=== PATIENT | male | born 1955 | race Caucasian/White ===

== ENCOUNTER 2019-07-18 09:23 | Outpatient (CLI) | payer MEDICARE, OTHER, SELFPAY ==
--- NOTE | ~2019-07-18 | XR_ITS ---
EXAMINATION: XR chest 2V EXAM DATE: 07/18/2019 09:49 INDICATION: Personal history of pneumonia. TECHNIQUE: Frontal and lateral projections of the chest obtained and reviewed. Comparison is made to prior examination from 05/04/2019. FINDINGS: Left lower lobe granuloma, projecting over the spine on the lateral projection. This is un changed compared to 2017. The lungs are otherwise clear. There are no pleural effusions. The cardio mediastinal silhouette is within normal limits. There is no pneumothorax suspected. Mild to moderat e thoracic spondylosis. IMPRESSION: No acute cardiopulmonary findings. Reviewed, dictated and finalized at location B.
== END 2019-07-18 09:24 | disposition home or self-care (01) ==
PROVIDERS: PCP Family Medicine; Visit Provider Family Medicine
DX: Z87.01 Personal history of pneumonia (recurrent) (principal)
CPT/HCPCS: 71046

== ENCOUNTER 2019-08-05 13:22 | Outpatient (CLI) | payer MEDICARE, OTHER, SELFPAY ==
--- NOTE | 2019-08-05 13:39 | ECHO_ITS ---
Patient Info Name: Juan Bhatti Age: 63 years : 1955 Gender: Male Ht: 67 in Wt: 268 lbs BSA: 2.46 m2 HR: 65 bpm Heart Rhythm: Sinus Rhythm Technical Quality: Fair Exam Date: 08/05/2019 1:51 PM Exam Location: [facility] Patient Status: Outpatient Admit Date: 08/05/2019 Staff Ordering Physician: Tomi Holland DO Nurse Discharge: Michoacano Cowan RDCS Attending Provider: Tomi Holland DO Referring Physician: Skyler ZHONG; Exam Type: CA echo doppler color flow Study Info Indications I50.32 - Chronic diastolic (congestive) heart failure Complete two-dimensional, color flow and Doppler transthoracic echocardiogram is performed. History/Risk Factors Diastolic heart failure. Summary 1. Left ventricular chamber dimension is normal. 2. Left ventricular systolic function is normal, estimated at 55-60%. 3. There is moderately increased left ventricular wall thickness. 4. The left ventricular diastolic function is grade I diastolic dysfunction. 5. E/e' 8 is minimally elevated. 6. Left atrial chamber dimension is mildly enlarged. 7. No pulmonary hypertension, estimated pulmonary arterial systolic pressure is 28 mmHg. Left Ventricle E/e' 8 is minimally elevated. Left ventricular chamber dimension is normal. Left ventricular systolic function is normal, estimated at 55-60%. There is moderately increased left ventricular wall thickness. The left ventricular diastolic function is grade I diastolic dysfunction. Right Ventricle Right ventricular chamber dimension is normal. Right ventricular systolic function is normal. Left Atria Left atrial chamber dimension is mildly enlarged. Right Atria Right atrial chamber dimension is normal. Aortic Valve The aortic valve is trileaflet. There is no aortic valve stenosis. There is no aortic valve regurgitation. Pulmonic Valve There is no pulmonic regurgitation. Mitral Valve There is no mitral valve stenosis. There is no mitral valve regurgitation. Tricuspid Valve There is no tricuspid valve regurgitation. No pulmonary hypertension, estimated pulmonary arterial systolic pressure is 28 mmHg. Pericardium/Pleural There is no pericardial effusion. Inferior Vena Cava Normal inferior vena cava with >50% collapse upon inspiration consistent with normal right atrial pressure, 5 mmHg. Aorta The aortic root size at the sinus of Valsalva is normal. Left Ventricular Outflow Tract Name Value Normal LVOT 2D LVOT Diameter 2.0 cm LVOT Doppler LVOT Peak Gradient 3 mmHg LVOT Mean Gradient 1 mmHg LVOT VTI 15 cm LVOT VTI/AV VTI Ratio 0.7 LVOT Stroke Volume 49 ml LVOT CO 2.9 l/min LVOT CI 1.2 l/min/m2 Mitral Valve Name Value Normal MV Doppler
== END 2019-08-05 13:23 | disposition home or self-care (01) ==
PROVIDERS: PCP Family Medicine; Visit Provider Internal Medicine Cardiovascular Disease
DX: I50.32 Chronic diastolic (congestive) heart failure (principal)
CPT/HCPCS: 93306

== ENCOUNTER 2019-08-08 09:47 | Outpatient (CLI) | payer MEDICARE, OTHER, SELFPAY ==
--- NOTE | ~2019-08-08 | CT_ITS ---
EXAMINATION: CT abdomen pelvis wo con DATE: 08/08/2019 10:17 INDICATION: Unspecified abdominal pain TECHNIQUE: Computed tomography (CT) of the abdomen and pelvis was performed without intravenous contr ast. Automated exposure control and iterative reconstruction technique were employed. Exam dose: 159 2.48 mGy-cm total exam DLP. COMPARISON: 10/18/2010 CT abdomen pelvis FINDINGS: There is a calcified left lower lobe granuloma. Calcified left lower lobe pulmonary granuloma, calcified left hilar nodes and numerous calcified sple malu granulomas, consistent with old granulomatous disease. There is discoid atelectasis or scarring i n the right lower lobe. No infiltrate or consolidation in the lower lung zones. Normal heart size. Coronary artery calcifications. No pericardial or pleural effusion. There is an IVC filter beneath the level of the renal veins. The liver, spleen, pancreas, adrenal glands and kidneys are unremarkable. No bile duct or pancreatic duct dilatation. No urinary tract calculus or hydroureteronephrosis. Normal appendix. No bowel obstruction or intraperitoneal free air. There is a small fat containing left inguinal hernia. Degenerative changes of the thoracic and lumbar spine; there is severe degenerative disc disease and retrolisthesis at L5-S1. IMPRESSION: Old pulmonary granulomatous disease Coronary atherosclerosis IVC filter Small fat-containing left inguinal hernia Reviewed, dictated and finalized at Location A. Reviewed, dictated and finalized at location B.
== END 2019-08-08 09:48 | disposition home or self-care (01) ==
PROVIDERS: PCP Family Medicine; Visit Provider Nurse Practitioner
DX: K40.90 Unilateral inguinal hernia, without obstruction or gangrene, not specified as recurrent (principal); I25.10 Atherosclerotic heart disease of native coronary artery without angina pectoris
CPT/HCPCS: 74176

== ENCOUNTER 2019-11-30 08:28 | Outpatient (CLI) | payer MEDICARE, OTHER, SELFPAY ==
--- NOTE | ~2019-11-30 | XR_ITS ---
EXAMINATION:XR_CERV2-3V_CR DATE: 11/30/2019 08:45 INDICATION: Cervicalgia TECHNIQUE: AP, lateral, lateral swimmers and odontoid views of the cervical spine are provided. COMPARISON: None FINDINGS: There are 2 mm of anterolisthesis of C4 on C5. Vertebral body alignment is otherwise normal . The odontoid is intact. No fracture is identified. The vertebral body heights are maintained. There is mild loss of intervertebral disc space height at C5-6 and C6-7. Prevertebral soft tissues are nor mal. Degenerative osteophytes project from the anterior endplates of multiple vertebral bodies. There is severe multilevel facet and uncovertebral joint osteoarthritis. IMPRESSION: 1. Moderate cervical spondylosis without acute findings. Reviewed, dictated and finalized at location B.
== END 2019-11-30 08:29 | disposition home or self-care (01) ==
PROVIDERS: PCP Family Medicine; Visit Provider Family Medicine
DX: M47.892 Other spondylosis, cervical region (principal)
CPT/HCPCS: 72040

== ENCOUNTER 2020-11-02 04:06 | Inpatient (IN) | payer MEDICARE, OTHER, SELFPAY ==
[2020-11-02] VITALS (25 sets, daily range): BP systolic 118–174; BP diastolic 76–93; PULSE 74–96; RESP 12–20; TEMP 35.6–36.8; O2SAT 91–97; BMI 39.0
--- NOTE | 2020-11-02 | ECHO_ITS ---
Patient Info Name: Juan Bhatti Age: 65 years : 1955 Gender: Male Ht: 67 in Wt: 249 lbs BSA: 2.36 m2 HR: 70 bpm BP: 120 / 77 mmHg Technical Quality: Poor Exam Date: 11/02/2020 1:22 PM Exam Location: [facility] Patient Status: Outpatient Admit Date: 11/02/2020 Staff Ordering Physician: Tomi Holland DO Commercial Loan Officer: MIGUEL Attending Provider: Wolf Gloria MD Referring Physician: Skyler ZHONG; Exam Type: CA echo dop color flow w con Study Info Indications I21.4 - Non-ST elevation (NSTEMI) myocardial infarction Complete two-dimensional, color flow and Doppler transthoracic echocardiogram is performed with contrast to opacify the left ventricle and to improve the deliniation of the left ventricle endocardial borders. Contrast/Agitated Saline Contrast/Ag. Saline: Definity Amount: 2.00 ml Administered By: Tameka Riley RN Existing IV Access: Yes IV Access Condition: patent with no signs of infiltration Reason for Poor Study: poor echocardiographic windows Summary 1. Left ventricular chamber dimension is normal. 2. Definity contrast administered improved wall motion interpretation. 3. Left ventricular systolic function is normal, estimated at 60-65%. 4. The left ventricular diastolic function is grade I diastolic dysfunction. 5. E/e' 7 is not elevated. 6. There is mild aortic valve sclerosis. Left Ventricle Definity contrast administered improved wall motion interpretation. E/e' 7 is not elevated. Left ventricular chamber dimension is normal. Left ventricular systolic function is normal, estimated at 60-65%. The left ventricular diastolic function is grade I diastolic dysfunction. Right Ventricle Right ventricular systolic function is normal with normal TAPSE 2.3 cm. Right ventricular chamber dimension is normal. Left Atria Left atrial chamber dimension is normal. Right Atria Right atrial chamber dimension is normal. Aortic Valve The aortic valve is trileaflet. There is mild aortic valve sclerosis. There is no aortic valve stenosis. There is no aortic valve regurgitation. Pulmonic Valve There is no pulmonic regurgitation. Mitral Valve There is no mitral valve stenosis. There is no mitral valve regurgitation. Tricuspid Valve There is no tricuspid valve regurgitation. Pericardium/Pleural There is no pericardial effusion. Inferior Vena Cava Normal inferior vena cava with >50% collapse upon inspiration consistent with normal right atrial pressure, 5 mmHg. Aorta The aortic root size at the sinus of Valsalva is normal. Left Ventricular Outflow Tract Name Value Normal LVOT 2D LVOT Diameter 2.27 cm LVOT Doppler LVOT Peak Velocity 87.27 cm/s LVOT Peak Gradient 3 mmHg LVOT Mean Gradient 2 mmHg LVOT VTI 17.10 cm LVOT VTI/AV VTI Ratio 0.72 LVOT Stroke Volume 69.30 ml LVOT CO 6.39 l/min
--- NOTE | ~2020-11-02 | XR_ITS ---
EXAMINATION: XR chest 2V DATE: 11/02/2020 04:36 INDICATION: Left-sided chest pain TECHNIQUE: PA and lateral views of the chest were obtained. COMPARISON: Chest radiograph dated 07/18/2019 FINDINGS: Again seen is a calcified nodule at the left lung base consistent with old granulomatous disease. No other airspace opacities, pulmonary edema, pleural effusion or pneumothorax. The cardiomediastinal si lhouette is normal. IMPRESSION: 1. No acute cardiopulmonary disease. Reviewed, dictated and finalized at location A.
--- NOTE | 2020-11-02 04:14 | ED.CHESTPAIN ---
HPI - Chest Pain General Chief Complaint: Chest Pain Stated Complaint: chest pain History of Present Illness HPI narrative: 65 yo male w/ h/o htn, dm, PE/dvt presents to the ED for chest pain. Crushing left sided chest pain that started at 0200 today. Radiated to left shoulder. No associated symptoms. He has never had this pain before. Resolved with nitroglycerin given by EMS. He has a h/o PE 20 years ago. He is on Coumadin. Uncertain of last INR. Related Data Home Medications Medication Instructions Recorded Confirmed ergocalciferol (vitamin D2) unit 03/31/19 09/10/20 bisacodyl [Dulcolax (bisacodyl)] PO 07/12/19 09/10/20 omega 3,6,9 combination no.7 PO 07/12/19 09/10/20 [[place] DHA] warfarin 5 mg tablet See Rx Instructions .ROUTE 06/05/20 09/10/20 .COMPLEX tablet blood-glucose meter,continuous 09/11/20 Allergies Allergy/AdvReac Type Severity Reaction Status Date / Time celecoxib Allergy Unknown Rash Verified 11/02/20 04:23 dapagliflozin Allergy Unknown Unknown Verified 11/02/20 04:23 fenofibrate Allergy Unknown Joint Pain Verified 11/02/20 04:23 Qtgifra-Owb-Ehm Reductase Allergy Unknown Joint Pain Verified 11/02/20 04:23 Inhibitor codeine AdvReac Confusion Verified 11/02/20 04:23 Review of Systems Review of Systems: All systems reviewed & are unremarkable except as noted in HPI and below Constitutional: Constitutional: Denies chills and Denies fever(s) ENT: Reports system reviewed and no additional complaints, except as documented Cardiovascular: Cardiovascular: Reports as per HPI Respiratory: Respiratory: Denies dyspnea Gastrointestinal: Gastrointestinal: Denies nausea Genitourinary: Genitourinary: Reports no additional male genitourinary complaints Neurologic: Reports system reviewed and no additional complaints, except as documented PENDING SALE TO [facility] Past Medical History Medical History Allergies Arthritis Benign reactive hypertension Blood clot associated with vein wall inflammation Cataracts, bilateral Chronic diastolic (congestive) heart failure DDD (degenerative disc disease) Diabetes Diabetes mellitus with neuropathy DVT (deep venous thrombosis) [place] filter in place Hypercholesterolemia Hypertension CARY (obstructive sleep apnea) Pneumonia Pulmonary embolism Ruptured intervertebral disc Seasonal allergies Ulcer Umbilical hernia Surgical History Surgical History H/O Spinal surgery History of inguinal hernia repair History of knee surgery Left History of thumb surgery Left Family History Family History Father Hypertension Family history of elevated blood lipids Mother Hypertension Family history of elevated blood lipids Family history of diabetes mellitus in first degree relative Other Cancer Diabetes mellitus Thyroid disease Social History Social History Smoking status: Former smoker Tobacco type: cigarettes Second hand tobacco smoke exposure: No Smoking end date: 05/08/93 Alcohol intake: never Substance use: never Substance use type: does not use Gender identity (if verbalized by the patient): Male Exam Const: General: no acute distress and alert Nutritional Appearance: obese Orientation/consciousness: patient oriented x3 HENMT: Head: normal to inspection Neck: Neck: normal visual inspection Chest: Chest palpation & inspection: normal inspection of the chest and no tenderness Resp: Effort & Inspection: normal respiratory effort Auscultation: clear to auscultation bilaterally Course Vital Signs Vital signs: Vital Signs Temperature 36.4 C 11/02/20 04:04 Pulse Rate 96 11/02/20 04:04 Respiratory Rate 16 11/02/20 04:04 Blood Pressure 174/90 H 11/02/20 04:04 Pulse Oximetry 96 11/02/20 0
--- NOTE | 2020-11-02 04:17 | ECG_ITS ---
Measurements Intervals [place] Rate: 80 P: 45 MN: 223 QRS: -80 QRSD: 113 T: 39 QT: 388 QTc: 450 Interpretive Statements SINUS RHYTHM WITH FIRST DEGREE AV BLOCK INCOMPLETE RIGHT BUNDLE BRANCH BLOCK POOR R WAVE PROGRESSION, ANTERIOR LEADS INFERIOR INFARCT, AGE INDETERMINATE ABNORMAL ECG Electronically Signed On 11-02-2020 7:58:02 CDT by Tomi Holland D.O.
[2020-11-02 04:35] LABS: Basophils Absolute Auto 0.1 K/mm3 (0.0-0.1); Basophils Percent Auto 0.8 % (0.2-1.2); Eosinophils Absolute Auto 0.1 K/mm3 (0-0.3); Hematocrit 52.5 % (42.0-52.0); Hemoglobin 17.9 g/dL (14.0-18.0); Immature Granulocyte Absolute 0.02 K/mm3 (0.00-0.031); Immature Granulocyte Percent A 0.3 % (0-0.5); Lymphocytes Absolute Auto 2.79 K/mm3 (0.9-3.2); Lymphocytes Percent Auto 42.1 % (18.3-44.2); Mean Corpuscular HGB Conc 34.1 g/dl (32-36); Mean Corpuscular Hemoglobin 29.6 pg (26-34); Mean Corpuscular Volume 86.9 fl (80-100); Mean Platelet Volume 9.9 fl (7.4-10.4); Monocytes Absolute Auto 0.7 K/mm3 (0.1-0.6); Neutrophils Percent Auto 44.8 % (45.5-73.1); Platelet Count Result 161 k/mm3 (150-375); Red Blood Count 6.04 M/mm3 (4.6-6.20); Red Cell Distribution Width 13.4 % (11.5-14.5); White Blood Count 6.6 K/mm3 (4.5-10.0)
[2020-11-02 04:50] LABS: INR 2.7
[2020-11-02 04:51] LABS: Partial Thromboplastin Time 39.6 SECONDS (22.3-36.8)
[2020-11-02 04:52] LABS: Anion Gap 10 mmol/L (8-16); Blood Urea Nitrogen 15 mg/dL (9-20); Calcium 9.3 mg/dL (8.4-10.2); Carbon Dioxide 25 mmol/L (22-30); Chloride 101 mmol/L (98-107); Estimated Glomerular Filt Rate > 60; Glucose 117 mg/dL (75-110); Potassium 3.3 mmol/L (3.4-5.0); Sodium 136 mmol/L (137-145)
[2020-11-02 04:55] LABS: NT Pro B Type Natriuretic Pept 50 pg/mL (5-100)
[2020-11-02 04:58] LABS: Troponin I 0.019 ng/mL (0.000-0.034)
[2020-11-02] MEDS: NITROGLYCERIN OINTMENT 1 INCH DOSE TRANSDERM ×4 (06:00→23:22)
--- NOTE | 2020-11-02 07:18 | ADMGEN ---
This patient, Juan Bhatti, was admitted to IMU Room [id number]. Patient/family oriented to hospital policies and general routines including ID bracelet, bed and alarms, visiting hours, pain management, procedures, bathroom and other care routines, personal items, smoking policy, room service/diet, and visiting hours. Information on how to activate the Rapid Response Team has been discussed. Patient/Family are encouraged to report perceived risks to care and to ask questions if they do not understand what they are told or what they should do.
[2020-11-02 08:00] LABS: Glucose Point of Care 130 mg/dl (65-105)
--- NOTE | 2020-11-02 09:12 | PM.CNCAR ---
Assessment and Plan Assessment and plan (1) Chest pain: Qualifiers: Chest pain type: unspecified Qualified Code(s): R07.9 - Chest pain, unspecified Code(s): R07.9 - Chest pain, unspecified Status: Acute Assessment and Plan: Resolved with NTP. (2) NSTEMI (non-ST elevated myocardial infarction): Code(s): I21.4 - Non-ST elevation (NSTEMI) myocardial infarction Status: Acute Assessment and Plan: Trend troponins. Check echo. Continue aspirin, Metoprolol. Discussed left heart cath and he is agreeable for procedure. Will consult [facility] for procedure. His INR is 2.7 on Warfarin, will hold warfarin and give Vit K to reverse INR level. Since he is not having active chest pains and hemodynamically stable, will probably plan for [facility] tomorrow with INR <1.8 hopefully. (3) Hypertension: Code(s): I10 - Essential (primary) hypertension Status: Acute Assessment and Plan: Stable. (4) Hypercholesterolemia: Code(s): E78.00 - Pure hypercholesterolemia, unspecified Status: Acute Assessment and Plan: Intolerant of statins due myalgia. (5) Type 2 diabetes mellitus with stage 3 chronic kidney disease: Code(s): E11.22 - Type 2 diabetes mellitus with diabetic chronic kidney disease; N18.3 - Chronic kidney disease, stage 3 (moderate) Status: Acute Assessment and Plan: Managed by hospitalist. (6) History of deep venous thrombosis or pulmonary embolus: Status: Acute Assessment and Plan: Remote history of it. Hold Warfarin. Has saritha filter. History of Present Illness History of Present Illness Consult date/time: 11/02/20 09:12 Reason for consult: CP. 63 yr old man who is my regular cardiology patient presents to ER with chest pain. He has a history of DVT/PE with [place] filter placed in 2007, hypertension, DM, CARY intolerant of CPAP, dyslipidemia (statins cause myalgia). is at bedside. He reports he was awake at 2 am this morning and had left sided chest pressure that radiates to his back that got worse. He called ambulance and was given aspirin and NTG SL but pain persisted. He got to ER and was started on NTP and pain subsided. Troponin is elevated at 1.01. INR 2.7 on Warfain. EKG shows sinus rhythm with inferior infarct, but no acute ST changes. Reports chronic left leg edema that is mild and controlled with compression stockings. He takes Lasix on weekends only as needed. He normally can walk 1/2 mile without any problems. Denies sob, orthopnea, PND, palpitations. Cardiovascular Procedures 08/05/19 Echo: EF 55-60%, mod LVH, grade I diastolic dysfunction (E/e' 8), mild LAE. Electrophysiology:: 05/04/19 EKG: Sinus rhythm with first degree AV block, BRWP, consider inferior infarct, age indeterminate. Stress Tests:: 07/18/19 CXR: Normal. Reason For Visit: Chest Pain Review of Systems Review of Systems: All systems reviewed & are unremarkable except as noted in HPI and below Constitutional: Constitutional: Reports as per HPI, Denies chills and Denies fever(s) Cardiovascular: Cardiovascular: Reports as per HPI, Reports chest pain and Denies lightheadedness Respiratory: Respiratory: Reports as per HPI and Denies dyspnea Gastrointestinal: Gastrointestinal: Reports as per HPI and Denies abdominal pain Genitourinary: Genitourinary: Reports as per HPI and Denies dysuria Musculoskeletal: Musculoskeletal: Reports as per HPI and Reports arthralgias Neurologic: Reports as per HPI, Denies dizziness and Denies syncope [facility] Past Medical History Medical History Allergies Arthritis Benign reactive hypertension Blood clot associated with vein wall inflammation Cataracts, bilateral Chronic diastolic (congestive) heart failure DDD (degenerative disc disease) Diabetes Diabetes mellitus with neuropathy DVT (deep venous thrombosis) [place] filter in place Hypercholest
--- NOTE | 2020-11-02 09:40 | PC.NURSE ---
[facility] flyer was given to patient.
--- NOTE | 2020-11-02 10:23 | PM.IMHP ---
H&P: HPI History of Present Illness Date/Time: 11/02/20 10:23 Chief Complaint: chest pain Narrative: patient with past medical history of DVT/PE with [place] filter placed in 2007, hypertension, DM, CARY intolerant of CPAP, dyslipidemia (statins cause myalgia). presented to the emergency department with chief complaint of chest pain, occurred overnight, moderate, intermittent, resolved at this time, pressure-like. associated with positive troponin, unremarkable EKG, cardiology saw the patient and recommended cardiac catheterization once his INR are sub therapeutic. patient is resting comfortably at this time, denies any active complaints. Review of Systems Review of Systems: All systems reviewed & are unremarkable except as noted in HPI and below Constitutional: Constitutional: Denies body ache(s) and Denies fatigue Eyes: Eyes: Denies blurry vision ENT: Denies dry mouth Cardiovascular: Cardiovascular: Denies chest pain with activity and Denies dyspnea Respiratory: Respiratory: Denies dyspnea Gastrointestinal: Gastrointestinal: Denies abdominal pain Genitourinary: Genitourinary: Denies genital pain Musculoskeletal: Musculoskeletal: Denies deformity Neurologic: Denies seizure-like activity Psychiatric: Psychiatric: Denies homicidal ideation Endocrine: Endocrine: Denies fatigue PMFSH Past Medical History Medical History Allergies Arthritis Benign reactive hypertension Blood clot associated with vein wall inflammation Cataracts, bilateral Chronic diastolic (congestive) heart failure DDD (degenerative disc disease) Diabetes Diabetes mellitus with neuropathy DVT (deep venous thrombosis) [place] filter in place Hypercholesterolemia Hypertension CARY (obstructive sleep apnea) Pneumonia Pulmonary embolism Ruptured intervertebral disc Seasonal allergies Ulcer Umbilical hernia Surgical History Surgical History H/O Spinal surgery History of inguinal hernia repair History of knee surgery Left History of thumb surgery Left Family History Family History Father Hypertension Family history of elevated blood lipids Mother Hypertension Family history of elevated blood lipids Family history of diabetes mellitus in first degree relative Other Cancer Diabetes mellitus Thyroid disease Social History Social History Smoking status: Never smoker Tobacco type: cigarettes Second hand tobacco smoke exposure: No Smoking end date: 05/08/93 Alcohol intake: never Substance use: never Substance use type: does not use Gender identity (if verbalized by the patient): Male Spiritual care concerns: No Meds Home Medications and Allergies Home Medications Medication Instructions Recorded Confirmed Type ergocalciferol (vitamin D2) 50,000 unit PO DAILY 03/31/19 11/02/20 History albuterol sulfate 1 inhalation INHALATION Q4-6H PRN 05/04/19 11/02/20 Rx #1 each diclofenac sodium 1 % topical gel 2 gm TOPICAL QID #100 gm 07/29/19 11/02/20 Rx azelastine 137 mcg (0.1 %) nasal 1 spray INTRANASAL Q12H #30 ml 05/14/20 11/02/20 Rx spray aerosol warfarin 5 mg tablet See Rx Instructions .ROUTE 06/05/20 11/02/20 History .COMPLEX tablet tramadol 50 mg tablet 50 mg PO Q6H PRN #360 tablet 06/23/20 11/02/20 Rx metoprolol tartrate 25 mg tablet 25 mg PO BID #180 tablet 07/17/20 11/02/20 Rx cyclobenzaprine 5 mg tablet 5 mg PO TID PRN #90 tablet 08/11/20 11/02/20 Rx insulin glargine 100 unit/mL (3 See Rx Instructions SUBCUT BID-TID 08/18/20 11/02/20 Rx mL) subcutaneous pen #45 ml losartan 100 1 tablet PO DAILY #90 tablet 08/25/20 11/02/20 Rx mg-hydrochlorothiazide 12.5 mg tablet montelukast 10 mg tablet 10 mg PO DAILY #90 tablet 08/25/20 11/02/20 Rx tamsulosi
[2020-11-02 10:57] LABS: Hemoglobin A1C 7.7 % (<5.7)
[2020-11-02] MEDS: hydroCHLOROthiazide 12.5 MG CAPSULE PO (11:23)
[2020-11-02] MEDS: MONTELUKAST SODIUM 10 MG TABLET PO (11:24)
[2020-11-02] MEDS: METOPROLOL TARTRATE 25 MG TABLET PO ×2 (11:24→20:31)
[2020-11-02] MEDS: PHYTONADIONE 5 MG TABLET PO ×2 (11:25→21:26)
[2020-11-02] MEDS: TAMSULOSIN HCL 0.4 MG CAPSULE PO (11:25)
[2020-11-02 11:55] LABS: Glucose Point of Care 106 mg/dl (65-105)
--- NOTE | 2020-11-02 12:08 | PM.CNCAR ---
Assessment and Plan Additional Plan this is a 65-year-old man with: No previous history of overt coronary artery disease enters the hospital with acute coronary syndrome. Symptoms were easily alleviated in the emergency room with sublingual nitroglycerin. Aspirin beta-blockers have been ordered by Dr. Holland which is appropriate. Anticoagulation is now being reversed with vitamin K and discontinuance of warfarin. We will arrange for coronary angiography to be done tomorrow to delineate his anatomy and guide therapeutic decisions assuming that his INR is sufficiently reversed. Juan Deluna MD [facility] History of Present Illness History of Present Illness Consult date/time: 11/02/20 12:08 Consult reason: chest pain Reason For Visit: Chest Pain Narrative: INTERVENTIONAL CARDIOLOGY CONSULT this is a 65-year-old man I am seeing at the request of Dr. Holland to consider arranging for coronary angiography. The patient is not known to have coronary artery disease prior to this an entered the hospital after being seen in the emergency room in the middle of the night with some chest pain that awakened him from sleep last night. Apparently at about 2:00 a.m. in the morning he was awakened from sleep with chest pain he describes a left precordial pain that radiated into the left shoulder and a bit down the left arm. He thought maybe he had slept in a funny position and he went to go to his recliner and rest for a while. When the symptoms did not resolve he notified his called an ambulance and was brought into the emergency room for evaluation. His symptom was not associated with any sense of shortness of breath nausea or vomiting. The air was no other great distress involved. In the emergency room his ECG was found to be benign. He was given aspirin and some nitroglycerin sublingually which alleviated his symptoms. He was admitted to the hospital for further evaluation and management. He is an established patient of Dr. Holland primarily for hypertension management. He was referred to him by his PCP for assistance with control of blood pressure. He does not report any history of other cardiac problems. 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 he is comfortable at this time visiting with his offers no other complaints. With physical activity such as working about his house he does not have any exertional symptoms. He does not exercise regularly in terms of activity associated chest pain. He denies any history of orthopnea PND or accumulating edema he has never had a syncopal episode. Troponin levels have risen up to just over 2 on the most recent sample. Patient's INR with his Coumadin was a 2.7 this morning. The Coumadin has of course been stopped and some vitamin K has been ordered by Dr. Holland. Review of Systems Constitutional: Constitutional: Reports no additional constitutional complaints Eyes: Eyes: Reports no additional eye complaints ENT: Reports system reviewed and no additional complaints, except as documented Cardiovascular: Cardiovascular: Reports as per HPI and Reports chest pain Respiratory: Respiratory: Reports no additional respiratory complaints Gastrointestinal: Gastrointestinal: Reports no additional gastrointestinal complaints Musculoskeletal: Musculoskeletal: Reports arthralgias Integumentary/Breasts: Skin/Breast: Reports system reviewed and no additional complaints, except as docu Neurologic: Reports system reviewed and no additional complaints, except as documented Endocrine: Endocrine: Reports no additional endocrine complaints Hematologic/Lymphatic: Hematologic/Lymphatic: Reports no additional hematologic/lymphatic complaints Allergic/Immunologic: Allergic/Immunologic: Reports no additional allergic/immunologic complaints PMFSH Past Medical History Medical History (R
[2020-11-02] MEDS: PERFLUTREN LIPID MICROSPHERES 1.5 ML VIAL DILUTED TO 10 ML TOTAL VOLUME IV PUSH (14:00)
[2020-11-02 16:27] LABS: Glucose Point of Care 117 mg/dl (65-105)
[2020-11-02] MEDS: LOSARTAN POTASSIUM 100 MG TABLET PO (16:46)
[2020-11-02 17:35] LABS: INR 2.6; Prothrombin Time 28.3 Seconds (11.1-14.7)
[2020-11-02] MEDS: traMADol HCL (*CRX) 50 MG TABLET PO (20:30)
[2020-11-02 20:52] LABS: Glucose Point of Care 150 mg/dl (65-105)
[2020-11-02] MEDS: CYCLOBENZAPRINE HCL 5 MG TABLET PO (21:26)
[2020-11-02] MEDS: CALCIUM CARBONATE (TUMS) 500 MG (200 MG ELEMENTAL) PO (21:27)
[2020-11-02] MEDS: fentaNYL CITRATE INJ (*CRX) 100 MCG/2 ML VIAL 50 MCG IV PUSH (23:22)
[2020-11-03] VITALS (24 sets, daily range): BP systolic 109–171; BP diastolic 66–110; PULSE 61–87; RESP 16–18; TEMP 35.9–36.5; O2SAT 92–96
[2020-11-03] MEDS: traMADol HCL (*CRX) 50 MG TABLET PO ×2 (03:53→12:57)
[2020-11-03 05:12] LABS: Basophils Percent Auto 0.4 % (0.2-1.2); Eosinophils Absolute Auto 0.1 K/mm3 (0-0.3); Eosinophils Percent Auto 1.7 % (0-4.4); Hematocrit 50.6 % (42.0-52.0); Hemoglobin 16.6 g/dL (14.0-18.0); Immature Granulocyte Absolute 0.03 K/mm3 (0.00-0.031); Immature Granulocyte Percent A 0.4 % (0-0.5); Lymphocytes Absolute Auto 1.74 K/mm3 (0.9-3.2); Lymphocytes Percent Auto 24.5 % (18.3-44.2); Mean Corpuscular HGB Conc 32.8 g/dl (32-36); Mean Corpuscular Hemoglobin 29.2 pg (26-34); Mean Corpuscular Volume 89.1 fl (80-100); Mean Platelet Volume 10.4 fl (7.4-10.4); Monocytes Absolute Auto 0.9 K/mm3 (0.1-0.6); Monocytes Percent Auto 12.5 % (2.6-8.5); Neutrophils Absolute Auto 4.3 K/mm3 (1.3-6.7); Neutrophils Percent Auto 60.5 % (45.5-73.1); Platelet Count Result 160 k/mm3 (150-375); Red Blood Count 5.68 M/mm3 (4.6-6.20); Red Cell Distribution Width 13.5 % (11.5-14.5); White Blood Count 7.1 K/mm3 (4.5-10.0)
[2020-11-03 05:24] LABS: INR 1.8; Prothrombin Time 21.7 Seconds (11.1-14.7)
[2020-11-03] MEDS: NITROGLYCERIN OINTMENT 1 INCH DOSE TRANSDERM ×2 (05:46→16:37)
--- NOTE | 2020-11-03 06:11 | ECG_ITS ---
Measurements Intervals [place] Rate: 76 P: 53 MI: 221 QRS: -66 QRSD: 114 T: 59 QT: 414 QTc: 468 Interpretive Statements SINUS RHYTHM WITH FIRST DEGREE AV BLOCK INTRAVENTRICULAR CONDUCTION DELAY POOR R WAVE PROGRESSION, ANTERIOR LEADS INFERIOR INFARCT, AGE INDETERMINATE BORDERLINE T WAVE ABNORMALITY- ANTERIOR LEADS ABNORMAL ECG Electronically Signed On 11-03-2020 13:10:58 CDT by Tomi Holland D.O.
[2020-11-03 06:48] LABS: Anion Gap 9 mmol/L (8-16); Blood Urea Nitrogen 16 mg/dL (9-20); Calcium 9.7 mg/dL (8.4-10.2); Carbon Dioxide 28 mmol/L (22-30); Chloride 102 mmol/L (98-107); Cholesterol 241 mg/dL (0-200); Estimated CRCL calculation 84 ml/min; Estimated Glomerular Filt Rate > 60; Glucose 125 mg/dL (75-110); HDL Direct 49 mg/dL; Magnesium 1.7 mg/dL (1.6-2.3); Phosphorus 3.8 mg/dL (2.5-4.5); Potassium 3.9 mmol/L (3.4-5.0); Sodium 139 mmol/L (137-145); Triglycerides 267 mg/dL (<150)
[2020-11-03 06:59] LABS: LDL Cholesterol Direct 111 mg/dL
--- NOTE | 2020-11-03 07:51 | PM.PNCARD ---
Progress Note: A&P Assessment and Plan (1) Chest pain: Qualifiers: Chest pain type: unspecified Qualified Code(s): R07.9 - Chest pain, unspecified Code(s): R07.9 - Chest pain, unspecified Status: Acute Assessment and Plan: Resolved with NTP. (2) NSTEMI (non-ST elevated myocardial infarction): Code(s): I21.4 - Non-ST elevation (NSTEMI) myocardial infarction Status: Acute Assessment and Plan: Trend troponin. Check echo. Continue aspirin, Metoprolol. Discussed left heart cath and he is agreeable for procedure. [facility] consulted for procedure. His INR was 2.7 yesterday on Warfarin, will hold warfarin and give Vit K to reverse INR level. INR as of 04:38 is 1.8. Spoke to [facility], plan for left heart cath today. Echo shows normal EF with no wall motion abnormalities. (3) Hypertension: Code(s): I10 - Essential (primary) hypertension Status: Acute Assessment and Plan: Stable. (4) Hypercholesterolemia: Code(s): E78.00 - Pure hypercholesterolemia, unspecified Status: Acute Assessment and Plan: Intolerant of statins due myalgia. Start Zetia 10 mg daily. (5) Type 2 diabetes mellitus with stage 3 chronic kidney disease: Code(s): E11.22 - Type 2 diabetes mellitus with diabetic chronic kidney disease; N18.3 - Chronic kidney disease, stage 3 (moderate) Status: Acute Assessment and Plan: Managed by hospitalist. (6) History of deep venous thrombosis or pulmonary embolus: Status: Acute Assessment and Plan: Remote history of it. Hold Warfarin. Has saritha filter. Subjective Date/time seen: 11/03/20 07:51 No more chest pain or sob. Sitting comfortably in chair at side of bed. Exam Const: General: cooperative, healthy appearing and comfortable Nutritional Appearance: obese Resp: Auscultation: clear to auscultation bilaterally, no crackles, no rales, no rhonchi and no wheezes Cardio: Jugular venous distension: no JVD Rate: regular rate Rhythm: regular rhythm Heart sounds: no murmurs Peripheral pulses: dorsalis pedis present GI: GI Palp: No abdominal tenderness and Yes Soft to palpation Neuro: General: oriented to person, oriented to place and oriented to time Extrem: Right lower extremity: no edema Left lower extremity: no edema Objective Data Vital Signs Vital Signs: Vital Signs - 24 hr 11/02/20 08:00 11/02/20 08:05 11/02/20 10:00 Temperature 98.3 F Pulse Rate 76 77 Respiratory Rate 18 16 Blood Pressure 120/77 Pulse Oximetry 97 94 96 11/02/20 10:34 11/02/20 11:24 11/02/20 11:55 Temperature 96.1 F L Pulse Rate 81 83 Respiratory Rate 18 Blood Pressure 126/76 Pulse Oximetry 93 95 11/02/20 12:00 11/02/20 13:55 11/02/20 15:31 Temperature Pulse Rate 78 83 79 Respiratory Rate 16 Blood Pressure Pulse Oximetry 93 11/02/20 16:00 11/02/20 16:23 11/02/20 17:50 Temperature 97 F L Pulse Rate 80 78 89 Respiratory Rate 16 Blood Pressure 118/80 Pulse Oximetry 96 11/02/20 19:57 11/02/20 20:00 11/02/20 20:31 Temperature 97.7 F Pulse Rate 87 91 94 Respiratory Rate 18 Blood Pressure 136/84 Pulse Oximetry 95 11/02/20 22:00 11/02/20 23:13 11/03/20 00:00 Temperature 97.8 F Pulse Rate 88 92 84 Respiratory Rate 20 Blood Pressure 144/86 H Pulse Oximetry 97 11/03/20 02:00 11/03/20 04:00 11/03/20 06:00 Temperature 97.7 F Pulse Rate 81 83 85 Respiratory Rate 18 Blood Pressure 118/66 Pulse Oximetry 96 Intake/Output Intake/Output: Intake & Output 10/31/20 11/01/20 11/02/20 11/03/20 23:59 23:59 23:59 23:59 Intake Total 720 Output Total 150 720 Balance 570 -720 Meds/Results Medications: Active Medications Generic Name Dose Route Start Last Admin Trade Name Freq PRN Reason Stop Dose Admin Albuterol 1 puff 11/02/20 10:25 Albuterol Sulfate (*Sp) Aerosol 1 Puff INHALATION Q4-6H PRN shortdarline
[2020-11-03] MEDS: METOPROLOL TARTRATE 25 MG TABLET PO (08:11)
[2020-11-03] MEDS: EZETIMIBE 10 MG TABLET PO (08:11)
[2020-11-03] MEDS: ASPIRIN 81 MG ENTERIC TABLET PO (08:11)
[2020-11-03 08:12] LABS: Glucose Point of Care 144 mg/dl (65-105)
[2020-11-03] MEDS: MONTELUKAST SODIUM 10 MG TABLET PO (08:12)
[2020-11-03] MEDS: TAMSULOSIN HCL 0.4 MG CAPSULE PO (08:12)
[2020-11-03] MEDS: LOSARTAN POTASSIUM 100 MG TABLET PO (08:12)
--- NOTE | 2020-11-03 09:32 | WPDMODSED ---
Moderate Sedation Note-Pt Data Patient Data Allergies Allergy/AdvReac Type Severity Reaction Status Date / Time celecoxib Allergy Unknown Rash Verified 11/02/20 04:23 dapagliflozin Allergy Unknown Unknown Verified 11/02/20 04:23 fenofibrate Allergy Unknown Joint Pain Verified 11/02/20 04:23 [id number]-Gsn-Qja Reductase Allergy Unknown Joint Pain Verified 11/02/20 04:23 Inhibitor codeine AdvReac Confusion Verified 11/02/20 04:23 lidocaine AdvReac Hives Verified 11/02/20 07:23 Home Medications Medication Instructions Recorded Confirmed Type ergocalciferol (vitamin D2) 50,000 unit PO DAILY 03/31/19 11/02/20 History albuterol sulfate 1 inhalation INHALATION Q4-6H PRN 05/04/19 11/02/20 Rx #1 each diclofenac sodium 1 % topical gel 2 gm TOPICAL QID #100 gm 07/29/19 11/02/20 Rx azelastine 137 mcg (0.1 %) nasal 1 spray INTRANASAL Q12H #30 ml 05/14/20 11/02/20 Rx spray aerosol warfarin 5 mg tablet See Rx Instructions .ROUTE 06/05/20 11/02/20 History .COMPLEX tablet tramadol 50 mg tablet 50 mg PO Q6H PRN #360 tablet 06/23/20 11/02/20 Rx metoprolol tartrate 25 mg tablet 25 mg PO BID #180 tablet 07/17/20 11/02/20 Rx cyclobenzaprine 5 mg tablet 5 mg PO TID PRN #90 tablet 08/11/20 11/02/20 Rx insulin glargine 100 unit/mL (3 See Rx Instructions SUBCUT BID-TID 08/18/20 11/02/20 Rx mL) subcutaneous pen #45 ml losartan 100 1 tablet PO DAILY #90 tablet 08/25/20 11/02/20 Rx mg-hydrochlorothiazide 12.5 mg tablet montelukast 10 mg tablet 10 mg PO DAILY #90 tablet 08/25/20 11/02/20 Rx tamsulosin 0.4 mg capsule 0.4 mg PO DAILY #90 cap 08/25/20 11/02/20 Rx insulin aspart U-100 100 unit/mL See Rx Instructions SUB-Q TID #15 10/19/20 11/02/20 Rx (3 mL) subcutaneous pen ml semaglutide 0.5 mg SUBCUT WEEKLY 30 Days #2 ml 10/29/20 11/02/20 Rx empagliflozin [Jardiance] 5 mg PO DAILY 11/02/20 11/02/20 History Current Medications: Active Medications Albuterol (Albuterol Sulfate (*Sp) Aerosol 1 Puff) 1 puff INHALATION Q4-6H PRN PRN Reason: shortness of breath or wheezing Aspirin (Aspirin 81 Mg Enteric Tablet) [facility] Admin: 11/03/20 08:11 Dose: 81 mg Documented by: Calcium Carbonate (Calcium Carbonate (Tums) 500 Mg (200 Mg Elemental)) 200 mg PO Q6H PRN PRN Reason: Indigestion Last Admin: 11/02/20 21:27 Dose: 200 mg Documented by: Cyclobenzaprine HCl (Cyclobenzaprine Hcl 5 Mg Tablet) 5 mg PO TID PRN PRN Reason: muscle spasm Last Admin: 11/02/20 21:26 Dose: 5 mg Documented by: Dextrose (Dextrose 50% 25 Gm/50 Ml Syringe) 12.5 gm IV PUSH PRN PRN; Protocol PRN Reason: Hypoglycemia Ezetimibe (Ezetimibe 10 Mg Tablet) 10 mg PO [facility] Last Admin: 11/03/20 08:11 Dose: 10 mg Documented by: Fentanyl Citrate (Fentanyl Citrate Inj (*Crx) 100 Mcg/2 Ml Vial) 50 mcg IV PUSH Q2HR PRN PRN Reason: Pain Rated 7-10 Last Admin: 11/02/20 23:22 Dose: 50 mcg Documented by: Glucagon (Glucagon For Inj 1 Mg Vial) 1 mg IM PRN PRN; Protocol PRN Reason: Hypoglycemia Glucose (Glucose Oral Gel 15 Gm Of Glucse In 37.5 Gm Tube) 15 gm PO PRN PRN; Protocol PRN Reason: Hypoglycemia Hydrochlorothiazide (Hydrochlorothiazide 12.5 Mg Capsule) 12.5 mg PO [facility] Last Admin: 11/02/20 11:23 Dose: 12.5 mg Documented by: Dextrose (Dextrose 5% 1,000 Ml) 1,000 mls @ 100 mls/hr IVPB PRN PRN; Protocol PRN Reason: Hypoglycemia Insulin Aspart (Insulin Aspart (*Bkc) 100 Units/Ml) 3 - 6 units SUB-Q TIDWM [facility]; Protocol Last Admin: 11/03/20 07:13 Dose: Not Given Documented by: Insulin Glargine (Insulin Glargine (*Bkc) 100 Units/Ml) 34 units 0.3 units/kg (34 units) SUB-Q DAILY [facility] Losartan Potassium (Losartan Potassium 100 Mg Tablet) 100 mg PO DAILY [facility] Last Admin: 11/03/20 08:12 Dose: 100 mg Documented by: Metoprolol Tartrate (Metoprolol Tartrate 25 Mg Tablet) 25 mg PO Q12HR [facility] Last Admin: 11/03/20 08:11 Dose: 25 mg Documented by: Montelukast Sodium (Montelukast Sodium 10 Mg Tablet) 10 mg PO DAILY [facility] Last Admin: 10/07
--- NOTE | 2020-11-03 09:59 | WPDHPUPDATE1 ---
History and Physical Update Update Date/Time: 11/03/20 09:59 History and Physical has been reviewed, including an updated exam of the patient. There are NO changes in the patient's condition. Risks, benefits, and alternatives have been discussed and questions answered. Patient agrees to proceed with procedure.
--- NOTE | 2020-11-03 12:05 | WPDCARDPROC ---
Cardiac Cath Procedure Note Date of procedure:: 11/03/20 Performing physician:: Damian Valadez MD Procedure Procedure note:: CARDIAC CATHETERIZATION AND PERCUTANEOUS CORONARY INTERVENTION REPORT DATE OF PROCEDURE: 11/03/2020 INDICATION FOR PROCEDURE: Non ST-elevation myocardial infarction BRIEF CLINICAL HISTORY: 65-year-old male with hypertension, diabetes mellitus, history of DVT/PE on anticoagulation with warfarin. Patient was admitted to [facility] on 11/02/2020 with with complaints of left-sided chest discomfort. His EKG showed sinus rhythm, inferior infarct-age undetermined. Troponins are elevated with peak troponin level of 2.6. Patient was referred for cardiac catheterization. Patient had been on chronic anticoagulation with warfarin. He was given vitamin K by the primary cardiology team prior cardiac catheterization. On the day of cardiac catheterization, patient's INR was 1.8. Benefits and risks of the procedure were discussed with the patient in depth, and informed consent was obtained prior to the procedure. Risks of the procedure include but are not limited to vascular complications including groin hematoma, retroperitoneal bleed, vessel perforation; periprocedural AR, cardiac arrhythmias, stroke, contrast induced nephropathy, and . After discussing all the benefits, risks and alternatives, patient was willing to proceed with the procedure. PROCEDURES PERFORMED: 1. Left heart catheterization- Selective left and right coronary angiogram; left ventriculogram and hemodynamic assessment 2. Percutaneous coronary intervention- a) IFR of proximal RCA b) attempted IFR mid LCX ( wire could not be advanced to the extreme angulation of LCX origin) c) attempted PCI on subtotal, complex occlusion in the mid LAD 3. Moderate sedation-CPT code 73578 MODERATE SEDATION: Midazolam 3 mg; fentanyl 75 mcg. Start time 1005 , Stop time 1158 ; Total [id number] time 113 minutes; Lacey Bustamante RN was trained observer for moderate sedation. ACCESS SITE: Right common femoral artery PROCEDURE NOTE: After obtaining informed consent, patient was brought to catheterization lab and prepped and draped in a usual sterile manner. After local anesthesia with lidocaine, right common femoral artery access was taken with micropuncture needle followed by insertion of a 5 [place]i sheath. Selective left coronary angiogram was performed using JL4 diagnostic catheter. Orthogonal views were taken. There was difficulty in engaging RCA ostium with JR4 due to unusual uptake of the vessel . Selective right coronary angiogram was performed using multipurpose diagnostic catheter. Next, a 5 [place]raini pigtail catheter was advanced in the LV cavity and was flushed with normal saline. LV pressure measurement was performed. After this, left ventriculogram was performed. The catheter was flushed again, and gradient across the aortic valve was measured on the pullback of the catheter. FINDINGS: LEFT MAIN CORONARY: the left main coronary artery is a large caliber, very long vessel with minor irregularities in the mid segment, no significant focal stenosis. The vessel bifurcates into LAD and left circumflex branches at right angles. LEFT ANTERIOR DESCENDING ARTERY: The proximal LAD is a medium caliber vessel with mild diffuse disease. Severe disease is seen in the mid-distal LAD with GÓMEZ 1 flow. There is 99% stenosis in the mid segment distal to the major diagonal branch. The remainder of the LAD has diffuse disease and is under filled due to the subtotal occlusion proximally. D1 is a small to medium caliber vessel; D2/major diagonal branch is a medium to large caliber vessel with mild stenosis in the proximal segment. LEFT CIRCUMFLEX ARTERY: The left circumflex artery originates at right angles from left main coronary artery. It gives rise to a high small to medium caliber OM branch which is tortuous vessel. 30-50% diffuse disease is seen in the mid se
--- NOTE | 2020-11-03 12:57 | PM.IMPN ---
Progress Note: A&P Assessment and Plan (1) History of deep venous thrombosis or pulmonary embolus: Status: Acute Assessment and Plan: patient on Coumadin with therapeutic INR, will hold Coumadin for cardiac catheterization (2) NSTEMI (non-ST elevated myocardial infarction): Code(s): I21.4 - Non-ST elevation (NSTEMI) myocardial infarction Status: Acute Assessment and Plan: aspirin was given metoprolol cardiologic consultation and for cardiac catheterization 1 iron are in normal limits (3) Uncontrolled type 2 diabetes mellitus with hyperglycemia: Code(s): E11.65 - Type 2 diabetes mellitus with hyperglycemia Status: Acute Assessment and Plan: decrease insulin doses, this patient the patient is getting be [facility] during this hospitalization for his procedures, check hemoglobin A1c and monitor blood sugar. (4) Hypertension: Code(s): I10 - Essential (primary) hypertension Status: Acute Assessment and Plan: resume home medication and monitor vital signs closely Additional Plan Will continue current treatment. Scheduled for catheterization today. Subjective Date/time seen: 11/03/20 12:57 Patient was seen during the morning rounds today. Patient denies any chest pain or shortness breath. No abdominal pain, nausea, no vomiting. Mood stable. Review of Systems Review of Systems: All systems reviewed & are unremarkable except as noted in HPI and below Constitutional: Constitutional: Denies body ache(s) and Denies fatigue Eyes: Eyes: Denies blurry vision ENT: Denies dry mouth Cardiovascular: Cardiovascular: Denies chest pain with activity and Denies dyspnea Respiratory: Respiratory: Denies dyspnea Gastrointestinal: Gastrointestinal: Denies abdominal pain Genitourinary: Genitourinary: Denies genital pain Musculoskeletal: Musculoskeletal: Denies deformity Neurologic: Denies seizure-like activity Psychiatric: Psychiatric: Denies homicidal ideation Endocrine: Endocrine: Denies fatigue Exam Const: General: alert; No no acute distress HENMT: Head: no hematomas Ears: hearing grossly normal bilaterally Mouth: Yes Normal oral and palatal mucosa present Eyes: General: appearance normal, both eyes and all related structures Neck: Neck: normal visual inspection Chest: Chest palpation & inspection: normal inspection of the chest Resp: Effort & Inspection: normal respiratory effort Cardio: Jugular venous distension: no JVD Rate: regular rate GI: Inspection: normal to inspection Objective Data Vital Signs Vital Signs: Vital Signs - 24 hr 11/02/20 13:55 11/02/20 15:31 11/02/20 16:00 Temperature Pulse Rate 83 79 80 Respiratory Rate 16 Blood Pressure Pulse Oximetry 93 11/02/20 16:23 11/02/20 17:50 11/02/20 19:57 Temperature 36.1 C L 36.5 C Pulse Rate 78 89 87 Respiratory Rate 16 18 Blood Pressure 118/80 136/84 Pulse Oximetry 96 95 11/02/20 20:00 11/02/20 20:31 11/02/20 22:00 Temperature Pulse Rate 91 94 88 Respiratory Rate Blood Pressure Pulse Oximetry 11/02/20 23:13 11/03/20 00:00 11/03/20 02:00 Temperature 36.6 C Pulse Rate 92 84 81 Respiratory Rate 20 Blood Pressure 144/86 H Pulse Oximetry 97 11/03/20 04:00 11/03/20 06:00 11/03/20 08:00 Temperature 36.5 C 36.0 C L Pulse Rate 83 85 81 Respiratory Rate 18 16 Blood Pressure 118/66 109/82 Pulse Oximetry 96 96 11/03/20 08:11 Temperature Pulse Rate 84 Respiratory Rate Blood Pressure Pulse Oximetry Intake/Output Intake/Output: Intake & Output 10/31/20 11/01/20 11/02/20 11/03/20 23:59 23:59 23:59 23:59 Intake Total 720 Output Total 150 995 Balance 570 -995 Meds/Results Medications: Active Medications Generic Name Dose Route Start Last Admin Trade Name Freq PRN Reason Stop Dose Admin Albuterol 1 puff 11/02/20 10:25 Albuterol Sulfate (*Sp) Aerosol 1 Puff
[2020-11-03] MEDS: SODIUM CHLORIDE 0.9% IV 1,000 ML 125 ML IV CONT (13:00)
[2020-11-03] MEDS: fentaNYL CITRATE INJ (*CRX) 100 MCG/2 ML VIAL 50 MCG IV PUSH ×2 (14:22→17:58)
[2020-11-03] MEDS: METOPROLOL TARTRATE INJ 5 MG/5 ML VIAL IV PUSH (15:00)
--- NOTE | 2020-11-03 16:15 | SUR.PHASEII ---
RETURNED TO IMU 203 VIA BED ON TELE S/P [facility] W/ DR. GILL. HEMOSTASIS TO R. GROIN PUNCTURE AT 1457 AFTER 30 MINUTE MANUAL PRESSURE HOLD TO SITE BY ZENON Rincon RN. SITE WITHOUT BLEEDING OR HEMATOMA; SITE SOFT, NONTENDER. DRESSING OF GAUZE AND TEGADERM IS C/D/I. BEDREST X 6 HOURS POST HEMOSTASIS UNTIL 2100. IVF'S OF NS AT 100ML/HR RUNNING ORDERED. REPORT HAS BEEN CALLED TO [facility] CABAN. OBSERVED R. GROIN SITE W/ PHUONG CABAN UPON ARRIVAL IN ROOM. NO DISTRESS NOTED. VOICES NO C/O.
[2020-11-03] MEDS: SODIUM CHLORIDE 0.9% IV 1,000 ML 999 ML IV CONT (16:37)
[2020-11-03 16:52] LABS: EDCOVIDSCREEN Negative (Negative)
[2020-11-03 16:53] LABS: Glucose Point of Care 144 mg/dl (65-105)
--- NOTE | 2020-11-05 13:33 | P.TS_ITS ---
Transfer Discharge Sum: Prov Provider Date of admission: 11/03/20 12:58 Primary care physician: Gonzalez Morgan DO Admitting clinician: Magali Langston MD Consults: 11/02/20 Consult to Physician Routine Comment: Consulting Provider: Juan Deluna butcher or smallgoods maker/MD group to consult: HCG Reason for consultation: CP/NSTEMI for [facility] Has provider been notified: Yes Consult to Physician Routine Comment: Consulting Provider: Tomi Holland butcher or smallgoods maker/MD group to consult: cardiology, arsalan Reason for consultation: chest pain, positive troponin Has provider been notified: Yes DS: Admitting Diagnosis Admitting Diagnosis Admitting Diagnosis: Chest pain Transfer Discharge Sum: Med Medications Active and Home Medications: Home Medications ergocalciferol (vitamin D2) 50,000 unit PO DAILY 03/31/19 [History Confirmed 11/02/20] albuterol sulfate 1 inhalation INHALATION Q4-6H PRN #1 each 05/04/19 [Rx Confirmed 11/02/20] diclofenac sodium 1 % topical gel 2 gm TOPICAL QID #100 gm 07/29/19 [Rx Confirmed 11/02/20] azelastine 137 mcg (0.1 %) nasal spray aerosol 1 spray INTRANASAL Q12H #30 ml 05/14/20 [Rx Confirmed 11/02/20] warfarin 5 mg tablet See Rx Instructions .ROUTE .COMPLEX tablet 06/05/20 [History Confirmed 11/02/20] tramadol 50 mg tablet 50 mg PO Q6H PRN #360 tablet 06/23/20 [Rx Confirmed 11/02/20] metoprolol tartrate 25 mg tablet 25 mg PO BID #180 tablet 07/17/20 [Rx Confirmed 11/02/20] cyclobenzaprine 5 mg tablet 5 mg PO TID PRN #90 tablet 08/11/20 [Rx Confirmed 11/02/20] insulin glargine 100 unit/mL (3 mL) subcutaneous pen See Rx Instructions SUBCUT BID-TID #45 ml 08/18/20 [Rx Confirmed 11/02/20] losartan 100 mg-hydrochlorothiazide 12.5 mg tablet 1 tablet PO DAILY #90 tablet 08/25/20 [Rx Confirmed 11/02/20] montelukast 10 mg tablet 10 mg PO DAILY #90 tablet 08/25/20 [Rx Confirmed 11/02/20] tamsulosin 0.4 mg capsule 0.4 mg PO DAILY #90 cap 08/25/20 [Rx Confirmed 11/02/20] insulin aspart U-100 100 unit/mL (3 mL) subcutaneous pen See Rx Instructions SUB-Q TID #15 ml 10/19/20 [Rx Confirmed 11/02/20] semaglutide 0.5 mg SUBCUT WEEKLY 30 Days #2 ml 10/29/20 [Rx Confirmed 11/02/20] empagliflozin [Jardiance] 5 mg PO DAILY 11/02/20 [History Confirmed 11/02/20] Transfer Discharge Sum: Hosp Hospital Course Hospital course: Juan Bhatti is a 65 year old male Time Spent with Patient Time attestation: Total time spent providing and/or coordinating transfer services: Patient was admitted with chest pain and found to have NSTEMI. Left heart cath by Dr. Valadez demonstrates subtotal mid LAD that was unable to pass wire through lesion to be stented. Therefore, patient is being transferred to [facility] under Dr. Valadez admitting for high risk PCI of mid LAD vs CABG surgery. He is being transferred in stable condition. Total time spent: Less than 30 minutes
== END 2020-11-03 18:59 | disposition short-term general hospital (02) | DRG 281 ==
LOC: ANHED 05:48 → ANHIMU 06:05
PROVIDERS: Emergency Medicine; Internal Medicine Cardiovascular Disease; Nurse Practitioner; Admitting Provider Internal Medicine; Emergency Provider Emergency Medicine; PCP Family Medicine; Visit Provider Internal Medicine Cardiovascular Disease
PROC: 4A023N7 Measurement of Cardiac Sampling and Pressure, Left Heart, Percutaneous Approach (ICD-10-PCS; CPT 93452; principal; 2020-11-03 11:00)
PROC: 4A033BC Measurement of Arterial Pressure, Coronary, Percutaneous Approach (ICD-10-PCS; CPT 93571; 2020-11-03 11:00)
PROC: 4A023N7 Measurement of Cardiac Sampling and Pressure, Left Heart, Percutaneous Approach (ICD-10-PCS; CPT 92920; 2020-11-03 11:00)
PROC: 4A033BC Measurement of Arterial Pressure, Coronary, Percutaneous Approach (ICD-10-PCS; CPT 75580; 2020-11-03 11:00)
DX: I21.4 Non-ST elevation (NSTEMI) myocardial infarction (principal); I50.32 Chronic diastolic (congestive) heart failure; I11.0 Hypertensive heart disease with heart failure; I25.10 Atherosclerotic heart disease of native coronary artery without angina pectoris; E11.65 Type 2 diabetes mellitus with hyperglycemia; G47.33 Obstructive sleep apnea (adult) (pediatric); E78.5 Hyperlipidemia, unspecified; E11.40 Type 2 diabetes mellitus with diabetic neuropathy, unspecified; E11.36 Type 2 diabetes mellitus with diabetic cataract; H26.9 Unspecified cataract; Z79.01 Long term (current) use of anticoagulants; Z79.4 Long term (current) use of insulin; Z79.899 Other long term (current) drug therapy; Z86.711 Personal history of pulmonary embolism; Z86.718 Personal history of other venous thrombosis and embolism; Z87.891 Personal history of nicotine dependence; Z95.828 Presence of other vascular implants and grafts
CPT/HCPCS: 36415; 71046; 80048; 80061; 82948; 83036; 83735; 83880; 84100; 84484; 85025; 85610; 85730; 87426; 92920; 93005; 93458; 93571; 93572; 96374; 96375; 99285; A9270; C1725; C1769; C1887; C1894; C8929; C9803; G0378; J0461; J0583; J1644; J2250; J3010; J7030; J7040; Q9957

== ENCOUNTER 2020-11-23 11:29 | Emergency (ER) | payer MEDICARE, OTHER, SELFPAY ==
[2020-11-23] VITALS (9 sets, daily range): BP systolic 105–143; BP diastolic 69–80; PULSE 68–82; RESP 7–20; TEMP 37; O2SAT 96–98
[2020-11-23 12:17] LABS: Prothrombin Time 46.9 Seconds (11.1-14.7)
[2020-11-23 12:26] LABS: INR 5.3
--- NOTE | 2020-11-23 13:48 | ED.RECABL ---
HPI - Recheck/Abnormal Lab/Rx General Chief Complaint: Recheck/Abnormal Lab/Rx Stated Complaint: Elevated INR Time Seen by Provider: 11/23/20 13:37 History of Present Illness HPI narrative: 65 yo male w/ h/o DVY, recent CABG presents from home for high INR. He had his INR checked this morning and the result came back >8. Lacie at [facility] requested that he come in to have it rechecked. Recheck is 5.3. He denies any bleeding, dizziness, dark stools, SOB. He does have moderate pain at one incision site. Lacie says that she is aware and has outpatient labs planned for later in the week. She agrees with holding Coumadin and no reversal agents at this time. Related Data Home Medications Medication Instructions Recorded Confirmed ergocalciferol (vitamin D2) 50,000 unit PO DAILY 03/31/19 11/02/20 warfarin 5 mg tablet See Rx Instructions .ROUTE 06/05/20 11/02/20 .COMPLEX tablet empagliflozin [Jardiance] 5 mg PO DAILY 11/02/20 11/02/20 Allergies Allergy/AdvReac Type Severity Reaction Status Date / Time celecoxib Allergy Unknown Rash Verified 11/23/20 12:55 dapagliflozin Allergy Unknown Unknown Verified 11/23/20 12:55 fenofibrate Allergy Unknown Joint Pain Verified 11/23/20 12:55 Fciqbjb-Fgg-Juo Reductase Allergy Unknown Joint Pain Verified 11/23/20 12:55 Inhibitor codeine AdvReac Confusion Verified 11/23/20 12:55 lidocaine AdvReac Hives Verified 11/23/20 12:55 Review of Systems Review of Systems: All systems reviewed & are unremarkable except as noted in HPI and below Constitutional: Constitutional: Denies fever(s) Cardiovascular: Cardiovascular: Denies chest pain Respiratory: Respiratory: Denies dyspnea Gastrointestinal: Gastrointestinal: Denies nausea Genitourinary: Genitourinary: Reports no additional male genitourinary complaints Neurologic: Denies dizziness and Denies weakness [facility] Past Medical History Medical History Allergies Arthritis Benign reactive hypertension Blood clot associated with vein wall inflammation Cataracts, bilateral Chronic diastolic (congestive) heart failure DDD (degenerative disc disease) Diabetes Diabetes mellitus with neuropathy DVT (deep venous thrombosis) [place] filter in place Hypercholesterolemia Hypertension CARY (obstructive sleep apnea) Pneumonia Pulmonary embolism Ruptured intervertebral disc Seasonal allergies Ulcer Umbilical hernia Surgical History Surgical History H/O Spinal surgery History of inguinal hernia repair History of knee surgery Left History of thumb surgery Left Family History Family History Father Hypertension Family history of elevated blood lipids Mother Hypertension Family history of elevated blood lipids Family history of diabetes mellitus in first degree relative Other Cancer Diabetes mellitus Thyroid disease Social History Social History Smoking status: Never smoker Tobacco type: cigarettes Second hand tobacco smoke exposure: No Smoking end date: 05/08/93 Alcohol intake: never Substance use: never Substance use type: does not use Gender identity (if verbalized by the patient): Male Spiritual care concerns: No Exam Const: General: no acute distress and alert Nutritional Appearance: obese Orientation/consciousness: patient oriented x3 HENMT: Head: normal to inspection Neck: Neck: normal visual inspection Resp: Effort & Inspection: normal respiratory effort Auscultation: clear to auscultation bilaterally, no rales, no rhonchi and no wheezes Cardio: Jugular venous distension: no JVD Rate: regular rate Rhythm: regular rhythm Heart sounds: no murmurs Skin: Other: Surgical wound to vein graft sites. Moderate erythema and tenderness around one site.
== END 2020-11-23 14:22 | disposition home or self-care (01) ==
PROVIDERS: Emergency Provider Emergency Medicine; PCP Family Medicine
DX: R79.1 Abnormal coagulation profile (principal); I11.0 Hypertensive heart disease with heart failure; I50.32 Chronic diastolic (congestive) heart failure; E11.9 Type 2 diabetes mellitus without complications; Z95.1 Presence of aortocoronary bypass graft; Z79.01 Long term (current) use of anticoagulants; Z86.718 Personal history of other venous thrombosis and embolism
CPT/HCPCS: 36415; 85610; 99283

== ENCOUNTER 2021-01-08 12:50 | Observation (INO) | payer MEDICARE, OTHER, SELFPAY ==
[2021-01-08] VITALS (37 sets, daily range): BP systolic 88–134; BP diastolic 44–98; PULSE 88–121; RESP 10–26; TEMP 36.1; O2SAT 95–99; BMI 39.6; BMI 40.0
--- NOTE | ~2021-01-08 | CT_ITS ---
EXAMINATION: CTA chest PE protocol DATE: 01/08/2021 14:24 INDICATION: Sudden onset shortness of breath TECHNIQUE: Computed tomography angiography (CTA) of the chest was performed with 100 mL Omnipaque-350 intravenous contrast timed to evaluate the pulmonary arteries. Coronal maximum intensity projection 3D-reconstructions were created by the technologist. The dose-length product (DLP) was 661.65 mGy-cm. Automated exposure control and iterative reconstruction technique were employed. COMPARISON: 05/05/2013, 08/08/2019 FINDINGS: The pulmonary arteries are well-opacified. No pulmonary embolism is identified. The examina tion is slightly limited by respiratory motion artifact. The examination is captured in the expirator y phase. There is a 1.9 x 1.2 cm nodule in the left lower lobe. A calcified left lower lobe nodule is consistent with old granulomatous disease. There are changes of interval coronary artery bypass martha ting. There is a chronic and unchanged cystic lesion in the mediastinum adjacent to the main pulmonar y artery. There are no pathologically enlarged thoracic lymph nodes. There is a small right pleural e ffusion. No pneumothorax is identified. Punctate calcifications in an otherwise normal spleen likely represent healed granulomatous disease. There is mild thoracic spondylosis. IMPRESSION: 1. No pulmonary embolism, sensitivity somewhat limited by motion artifact. 2. New 1.9 cm nodule of the left lower lobe. Consider follow-up CT in three months or PET/CT. Reviewed, dictated and finalized at location A. IMPRESSION: 1. No pulmonary embolism, sensitivity somewhat limited by motion artifact. 2. New 1.9 cm nodule of the left lower lobe. Consider follow-up CT in three mon ths or PET/CT.
--- NOTE | ~2021-01-08 | XR_ITS ---
EXAMINATION: XR chest 2V DATE: 01/08/2021 13:13 INDICATION: Shortness of breath TECHNIQUE: AP and lateral views of the chest are obtained. COMPARISON: 11/02/2020 FINDINGS: The lung volumes are low. The lungs are free of acute opacities. There is no pleural effusi on or pneumothorax. The heart size is normal. There are changes of interval coronary artery bypass gr afting. There is moderate thoracic spondylosis. IMPRESSION: 1. No acute cardiopulmonary abnormality. Reviewed, dictated and finalized at location A.
--- NOTE | ~2021-01-08 | CT_ITS ---
EXAMINATION: CT abdomen pelvis w con DATE: 01/08/2021 17:37 INDICATION: Abdominal pain. TECHNIQUE: Computed tomography (CT) of the abdomen and pelvis was performed with 100 mL Omnipaque 350 intravenous contrast. Automated exposure control and iterative reconstruction technique were employe d. The dose-length product was 1550.94 mGy-cm. COMPARISON: CT abdomen and pelvis 08/08/2019 FINDINGS: The visualized portions of the lung bases demonstrate mild atelectasis. Calcified left lung nodules and calcified left hilar lymph nodes are consistent with old granulomatous disease. There is a 1.5 cm nodule in left lower lobe. No pleural effusion. The heart size is normal. There are changes of recent coronary bypass grafting. There are coronary artery calcifications. No pericardial effusio n. The liver demonstrates surface nodularity, consistent with cirrhosis. The gallbladder is normal. C alcifications in the spleen are consistent with old granulomatous disease. There are peripheral infar cts in the spleen. The pancreas and adrenal glands are normal. There is cortical thinning of the kidn eys. There is a filter in the inferior vena cava. The prostate is mildly enlarged. Prominent fat in l eft inguinal canal may be a hernia. There are no dilated loops of bowel. The appendix is normal. Ther e is trace ascites. There are no pathologically enlarged lymph nodes. There is severe lower lumbar sp ondylosis. There is mild thoracic spondylosis. IMPRESSION: 1. Peripheral infarcts in the spleen. 2. Cirrhosis of the liver. 3. 1.5 cm nodule in left lung lower lobe, new from 08/08/2019. This finding may be inflammation/infecti on or malignancy. Further evaluation is recommended with either PET/CT or 3 month noncontrast low-dos e chest CT. Reviewed, dictated and finalized at location A. IMPRESSION: 1. Peripheral infarcts in the spleen. 2. Cirrhosis of the liver. 3. 1.5 cm nodule in left lung lower lobe, new from 08/08/2019. This finding may b e inflammation/infection or malignancy. Further evaluation is recommended with either PET/CT or 3 month noncontrast low-dose chest CT.
--- NOTE | 2021-01-08 12:50 | PC.NURSE ---
ems ns continues infusing without difficulty
--- NOTE | 2021-01-08 13:01 | ECG_ITS ---
Measurements Intervals [place] Rate: 99 P: 58 NE: 199 QRS: -57 QRSD: 95 T: 54 QT: 368 QTc: 474 Interpretive Statements SINUS RHYTHM LEFT AXIS DEVIATION POSSIBLE LEFT ATRIAL ENLARGEMENT INCOMPLETE RIGHT BUNDLE BRANCH BLOCK BORDERLINE R WAVE PROGRESSION, ANTERIOR LEADS INFERIOR INFARCT, AGE INDETERMINATE BORDERLINE T WAVE ABNORMALITY- LAT/HIGH LAT LEADS ABNORMAL ECG Electronically Signed On 01-08-2021 13:35:05 CDT by Tomi Holland D.O.
[2021-01-08 13:12] LABS: Basophils Percent Auto 0.4 % (0.2-1.2); Eosinophils Absolute Auto 0.1 K/mm3 (0-0.3); Eosinophils Percent Auto 1.1 % (0-4.4); Hematocrit 40.1 % (42.0-52.0); Hemoglobin 12.8 g/dL (14.0-18.0); Immature Granulocyte Absolute 0.07 K/mm3 (0.00-0.031); Immature Granulocyte Percent A 0.7 % (0-0.5); Lymphocytes Absolute Auto 1.42 K/mm3 (0.9-3.2); Lymphocytes Percent Auto 14.2 % (18.3-44.2); Mean Corpuscular HGB Conc 31.9 g/dl (32-36); Mean Corpuscular Hemoglobin 27.8 pg (26-34); Mean Platelet Volume 10.3 fl (7.4-10.4); Monocytes Absolute Auto 0.9 K/mm3 (0.1-0.6); Monocytes Percent Auto 8.6 % (2.6-8.5); Neutrophils Absolute Auto 7.5 K/mm3 (1.3-6.7); Platelet Count Result 160 k/mm3 (150-375); Red Blood Count 4.61 M/mm3 (4.6-6.20); Red Cell Distribution Width 13.3 % (11.5-14.5)
[2021-01-08 13:20] LABS: Prothrombin Time 13.1 Seconds (11.1-14.7)
[2021-01-08 13:21] LABS: Partial Thromboplastin Time 24.3 SECONDS (22.3-36.8)
[2021-01-08 13:28] LABS: Anion Gap 10 mmol/L (8-16); Blood Urea Nitrogen 18 mg/dL (9-20); Carbon Dioxide 22 mmol/L (22-30); Chloride 106 mmol/L (98-107); Estimated CRCL calculation 68 ml/min; Estimated Glomerular Filt Rate > 60; Glucose 224 mg/dL (65-110); Potassium 3.7 mmol/L (3.4-5.0); Sodium 138 mmol/L (137-145)
--- NOTE | 2021-01-08 13:39 | ED.GENADULT ---
HPI - General Adult General Chief complaint: Shortness of Breath/Dyspnea Stated complaint: NOT FEELING WELL Time Seen by Provider: 01/08/21 13:04 Source: RN notes reviewed History of Present Illness HPI narrative: Patient presents emergency department from home for near syncopal episode. Patient states he was vacuuming the room when he walked across the room to use the restroom he states at that time he got lightheaded and felt he is in a pass out with associated shortness of breath and nausea. He states he did not fully pass out and feels back to normal at this time he denies having any chest pain he denies any numbness or tingling in the extremities vomiting diarrhea or any other symptoms patient states he did just have a CABG at the end of October and is followed by Dr. Holland patient states that he felt fine has had no recent illness chest pain or shortness of breath Related Data Home Medications Medication Instructions Recorded Confirmed metoprolol tartrate 25 mg tablet 12.5 mg PO BID tablet 12/17/20 01/08/21 aspirin 81 mg tablet,delayed 81 mg PO DAILY 01/05/21 01/08/21 release insulin glargine [Basaglar KwikPen 24 unit SUBCUT QPM 01/08/21 01/08/21 U-100 Insulin] insulin glargine [Basaglar KwikPen 44 unit SUBCUT QAM 01/08/21 01/08/21 U-100 Insulin] Allergies Allergy/AdvReac Type Severity Reaction Status Date / Time celecoxib Allergy Unknown Rash Verified 01/08/21 13:02 dapagliflozin Allergy Unknown Unknown Verified 01/08/21 13:02 fenofibrate Allergy Unknown Joint Pain Verified 01/08/21 13:02 [id number]-Utk-Rwc Reductase Allergy Unknown Joint Pain Verified 01/08/21 13:02 Inhibitor codeine AdvReac Confusion Verified 01/08/21 13:02 lidocaine AdvReac Hives Verified 01/08/21 13:02 Review of Systems Review of Systems: Gen.: Denies fevers or chills ENT: Denies congestion Respiratory: Reports shortness of breath CV: Denies chest pain or palpitations reports near syncope GI: Denies abdominal painemesis or diarrhea nausea Musculoskeletal: Denies back pain or muscle pain Neuro: Denies numbness, tingling, weakness or focal weakness Skin: Denies rash Except as documented, all other systems reviewed and negative PMFSH Past Medical History Medical History Allergies Arthritis Benign reactive hypertension Blood clot associated with vein wall inflammation Cataracts, bilateral Chronic diastolic (congestive) heart failure DDD (degenerative disc disease) Diabetes Diabetes mellitus with neuropathy DVT (deep venous thrombosis) [place] filter in place Hypercholesterolemia Hypertension CARY (obstructive sleep apnea) Pneumonia Pulmonary embolism Ruptured intervertebral disc Seasonal allergies Ulcer Umbilical hernia Surgical History Surgical History H/O Spinal surgery History of inguinal hernia repair History of knee surgery Left History of thumb surgery Left Family History Family History Father Hypertension Family history of elevated blood lipids Mother Hypertension Family history of elevated blood lipids Family history of diabetes mellitus in first degree relative Other Cancer Diabetes mellitus Thyroid disease Social History Social History Smoking status: Never smoker Tobacco type: cigarettes Second hand tobacco smoke exposure: No Smoking end date: 05/08/93 Alcohol intake: never Substance use: never Substance use type: does not use Gender identity (if verbalized by the patient): Male Spiritual care concerns: No Exam Narrative: APPEARANCE: No acute distress, nontoxic, resting in bed EYES: EOMI HEENT: Normocephalic, atraumatic, OMM RESPIRATORY: No respiratory distress Clear to auscultation bilaterally with no rhonchi wheezing or rales. CARDIOVASCU
[2021-01-08 13:40] LABS: NT Pro B Type Natriuretic Pept 1060 pg/mL (5-100); Troponin I < 0.012 ng/mL (0.000-0.034)
--- NOTE | 2021-01-08 13:50 | PC.NURSE ---
ns liter bolus infused. family at bedside
[2021-01-08] MEDS: SODIUM CHLORIDE 0.9% IV 1,000 ML 999 ML IV CONT (15:15)
--- NOTE | 2021-01-08 15:15 | PC.NURSE ---
pt continues to c/o not feeling well. bp well within normal limits. 2nd liter ns hung and infusing without difficulty
--- NOTE | 2021-01-08 17:15 | PC.NURSE ---
pedal pulses doppled bilat equal and strong
[2021-01-08 17:36] LABS: Alanine Aminotransferase 31 U/L (4-50); Albumin Level 4.5 g/dL (3.5-5.1); Alkaline Phosphatase 87 U/L (38-126); Aspartate Amino Transferase 34 U/L (17-59); Bilirubin,Total 0.5 mg/dL (0.2-1.3); Lipase 115 U/L (23-300)
[2021-01-08 17:47] LABS: Troponin I < 0.012 ng/mL (0.000-0.034)
--- NOTE | 2021-01-08 18:54 | ECG_ITS ---
Measurements Intervals [place] Rate: 111 P: 36 VA: 164 QRS: -74 QRSD: 102 T: 78 QT: 364 QTc: 495 Interpretive Statements SINUS TACHYCARDIA LEFT AXIS DEVIATION POSSIBLE LEFT ATRIAL ENLARGEMENT INCOMPLETE RIGHT BUNDLE BRANCH BLOCK POOR R WAVE PROGRESSION, ANTERIOR LEADS CONSIDER INFERIOR INFARCT, AGE INDETERMINATE BORDERLINE T WAVE ABNORMALITY- HIGH LATERAL LEADS ABNORMAL ECG Electronically Signed On 01-08-2021 20:50:01 CDT by Tomi Holland D.O.
--- NOTE | 2021-01-08 19:34 | PC.NURSE ---
Assumed care of pt at this time. Pt alert and upright on stretcher at this time, with c/o back pain. Denies CP or SOB at this time. Pt and family updated.
--- NOTE | 2021-01-08 19:45 | PC.NURSE ---
Pt transferred to wheelchair for comfort. Steady gait.
[2021-01-08] MEDS: MORPHINE SULFATE (*CRX) 2 MG/ML INJ IV PUSH (20:16)
--- NOTE | 2021-01-08 20:32 | PM.IMHP ---
H&P: HPI History of Present Illness Date/Time: 01/08/21 20:32 Chief Complaint: Near syncope Narrative: This is a 65-year-old male with past medical history significant for myocardial infarction, coronary artery bypass graft 4 vessel disease performed on November 04, 2020 at [facility], obstructive sleep apnea, obesity, type 2 diabetes mellitus, hypertension, dyslipidemia, peripheral diabetic neuropathy. Patient presented today to the emergency room after he some house chores he VAC the and he felt very dizzy lightheaded diaphoretic cold call his at work ask her to come home when she came home she found him not looking well he decided to lay in bed but still did not feel well they decided to come to the emergency room. In emergency room patient was found to be hypotensive he received 2 L of NS he was worked up for acute pulmonary embolism a CT of the chest PE protocol did not show acute pulmonary embolism S CT of abdomen and pelvis showed some peripheral splenic infarcts. According to patient he had been in his usual state of health prior to these and after he was released from the hospital after having his bypass surgery things seem to be going well, he denied any fevers, any chills ,any rigors ,any chest pain ,shortness of breath, cough, sputum production ,leg pain, however at the time of my visit in the room the patient was very uncomfortable and had an emesis and was complaining of lower back pain and he was placed in a wheelchair. Decision was made to admit the patient to intermediate care unit. Review of Systems Review of Systems: Lightheaded, dizzy, diaphoretic, clammy, nausea and vomiting. Constitutional: Constitutional: Denies chills, Denies fatigue, Denies fever(s), Denies lethargy, Denies malaise, Denies night sweats and Denies weakness Eyes: Eyes: Reports as per HPI ENT: Reports system reviewed and no additional complaints, except as documented Cardiovascular: Cardiovascular: Denies chest pain, Denies chest pain at rest, Denies chest pain with activity, Denies pedal edema, Denies edema, Denies irregular heart rhythm, Denies leg edema, Reports lightheadedness, Denies radiating jaw, neck or arm pain, Denies palpitations, Denies dyspnea and Denies dyspnea on exertion Comments: Near syncope Respiratory: Respiratory: Reports as per HPI Gastrointestinal: Gastrointestinal: Denies abdominal pain, Reports nausea and Reports vomiting Genitourinary: Genitourinary: Reports no additional male genitourinary complaints Musculoskeletal: Musculoskeletal: Denies arthralgias Comments: Wound dehiscence graft site right lower extremity above the knee medial aspect Integumentary/Breasts: Comments: Wound dehiscence Neurologic: Reports system reviewed and no additional complaints, except as documented Psychiatric: Psychiatric: Reports no additional psychiatric complaints Endocrine: Endocrine: Reports no additional endocrine complaints Hematologic/Lymphatic: Hematologic/Lymphatic: Reports no additional hematologic/lymphatic complaints Allergic/Immunologic: Allergic/Immunologic: Reports no additional allergic/immunologic complaints [facility] Past Medical History Medical History (Updated 01/09/21 @ 00:53 by Magali Langston MD) Allergies Arthritis Benign reactive hypertension Blood clot associated with vein wall inflammation Cataracts, bilateral Chronic diastolic (congestive) heart failure DDD (degenerative disc disease) Diabetes Diabetes mellitus with neuropathy DVT (deep venous thrombosis) [place] filter in place Hypercholesterolemia Hypertension ACRY (obstructive sleep apnea) Pneumonia Pulmonary embolism Ruptured intervertebral disc Seasonal allergies Ulcer Umbilical hernia Surgical History Surgical History H/O Spinal surgery History of inguinal hernia repair History of knee surgery Left History of thumb surgery Left Family History Family Histor
--- NOTE | 2021-01-08 21:00 | ADMGEN ---
This patient, Juan Bhatti, was admitted to IMU Room 206-02 at 2029 from the ED. Patient/family oriented to hospital policies and general routines including ID bracelet, bed and alarms, visiting hours, pain management, procedures, bathroom and other care routines, personal items, smoking policy, room service/diet, and visiting hours. Information on how to activate the Rapid Response Team has been discussed. Patient/Family are encouraged to report perceived risks to care and to ask questions if they do not understand what they are told or what they should do.
[2021-01-08] MEDS: ONDANSETRON INJ 4 MG/2 ML VIAL 8 MG IV PUSH (22:04)
[2021-01-08 22:24] LABS: Basophils Absolute Auto 0.1 K/mm3 (0.0-0.1); Basophils Percent Auto 0.3 % (0.2-1.2); Eosinophils Percent Auto 0.1 % (0-4.4); Hematocrit 47.2 % (42.0-52.0); Hemoglobin 14.3 g/dL (14.0-18.0); Immature Granulocyte Absolute 0.32 K/mm3 (0.00-0.031); Immature Granulocyte Percent A 1.6 % (0-0.5); Lymphocytes Percent Auto 13.8 % (18.3-44.2); Mean Corpuscular HGB Conc 30.3 g/dl (32-36); Mean Corpuscular Hemoglobin 27.6 pg (26-34); Mean Corpuscular Volume 90.9 fl (80-100); Mean Platelet Volume 10.7 fl (7.4-10.4); Monocytes Absolute Auto 1.6 K/mm3 (0.1-0.6); Monocytes Percent Auto 7.8 % (2.6-8.5); Neutrophils Absolute Auto 15.4 K/mm3 (1.3-6.7); Neutrophils Percent Auto 76.4 % (45.5-73.1); Platelet Count Result 233 k/mm3 (150-375); Red Blood Count 5.19 M/mm3 (4.6-6.20); Red Cell Distribution Width 13.8 % (11.5-14.5); White Blood Count 20.2 K/mm3 (4.5-10.0)
[2021-01-08 22:29] LABS: Glucose Point of Care 279 mg/dl (65-105)
[2021-01-08] MEDS: AMIODARONE HCL 200 MG TABLET 400 MG PO (22:29)
[2021-01-08] MEDS: GABAPENTIN 300 MG CAPSULE PO (22:30)
[2021-01-08 22:42] LABS: INR 1.1; Prothrombin Time 14.3 Seconds (11.1-14.7)
[2021-01-08 22:43] LABS: Partial Thromboplastin Time 33.1 SECONDS (22.3-36.8)
[2021-01-08 22:51] LABS: Lactic Acid Reflex 7.4 mmol/L (0.7-2.1)
[2021-01-08] MEDS: INSULIN GLARGINE (*BKC) 100 UNITS/ML 40 UNITS SUB-Q (23:28)
[2021-01-08] MEDS: HEPARIN SODIUM 5,000 UNITS/ML VIAL 7000 UNITS IV PUSH (23:31)
[2021-01-08] MEDS: HEPARIN SOD/D5W 100 UNITS/ML 25,000 UNITS/250 ML BAG 15 UNITS IV CONT (23:34)
[2021-01-08] MEDS: FUROSEMIDE INJ 40 MG/4 ML VIAL 10 MG IV PUSH (23:50)
[2021-01-08] MEDS: SODIUM CHLORIDE 0.9% IV 250 ML 100 ML IV CONT (23:51)
[2021-01-09] VITALS: BP 97/66; PULSE 117; PULSE 119; RESP 20; TEMP 36.1; O2SAT 95
[2021-01-09 00:36] LABS: Troponin I 0.024 ng/mL (0.000-0.034)
[2021-01-09] MEDS: MORPHINE SULFATE (*CRX) 2 MG/ML INJ IV PUSH (00:46)
[2021-01-09] MEDS: SODIUM CHLORIDE 0.9% IV 250 ML 100 ML IV CONT (00:47)
--- NOTE | 2021-01-09 01:07 | PM.TDS ---
Transfer Discharge Sum: Prov Provider Date of admission: 01/08/21 17:58 Primary care physician: Sincere Hampton MD Admitting clinician: Georgette Kang MD Consults: 01/08/21 17:59 Consult to Physician Routine Comment: Consulting Provider: Tomi Holland Reason for consultation: Orthostatic hypotension Has provider been notified: Yes Attending physician on discharge: Magali Langston V. Discharging clinician: Magali Langston V. Anticipated date of transfer: 01/09/21 Receiving physician/facility: [facility] DS: Admitting Diagnosis Admitting Diagnosis Near-syncope DS: Discharge Diagnosis Discharge Diagnosis (1) Ischemic leg: Code(s): I99.8 - Other disorder of circulatory system Status: Acute Assessment and Plan: Patient is currently on heparin drip Discussed with vascular surgeon Dr. Vasquez at [facility] Patient is been transferred by helicopter for further treatment Supportive care (2) Near syncope: Code(s): R55 - Syncope and collapse Status: Acute Assessment and Plan: Patient was hypotensive at the time EMS arrived to his house Has received multiple boluses of NS Supportive care EKG reviewed CT PE protocol reviewed CT abdomen and pelvis reviewed (3) CAD (coronary artery disease), autologous vein bypass graft: Code(s): I25.810 - Atherosclerosis of coronary artery bypass graft(s) without angina pectoris Status: Acute Assessment and Plan: Patient is status post bypass surgery x4 vessel disease (4) NSTEMI (non-ST elevated myocardial infarction): Code(s): I21.4 - Non-ST elevation (NSTEMI) myocardial infarction Status: Acute Assessment and Plan: Chronic (5) History of deep venous thrombosis or pulmonary embolus: Status: Acute Assessment and Plan: For some reason patient has been off his Coumadin It is noted that he has a Julian filter in place according to history (6) Chronic back pain: Code(s): M54.9 - Dorsalgia, unspecified; G89.29 - Other chronic pain Status: Acute Assessment and Plan: Tylenol as needed (7) Type 2 diabetes mellitus with stage 3 chronic kidney disease: Code(s): E11.22 - Type 2 diabetes mellitus with diabetic chronic kidney disease; N18.3 - Chronic kidney disease, stage 3 (moderate) Status: Acute Assessment and Plan: Continue insulin Accu-Cheks AC and HS Continue to monitor BUN and creatinine (8) Uncontrolled type 2 diabetes mellitus with hyperglycemia: Code(s): E11.65 - Type 2 diabetes mellitus with hyperglycemia Status: Acute Assessment and Plan: Continue to monitor (9) CARY (obstructive sleep apnea): Code(s): G47.33 - Obstructive sleep apnea (adult) (pediatric) Status: Acute Assessment and Plan: CPAP as needed (10) Lactic acidosis: Code(s): E87.2 - Acidosis Status: Acute Assessment and Plan: Likely secondary to a combination of sepsis and ischemia Patient is currently receiving boluses of 0.9 NS On broad-spectrum antibiotics (11) Sepsis: Code(s): A41.9 - Sepsis, unspecified organism Status: Acute Assessment and Plan: Likely secondary to wound infection and dehiscence Sepsis workup in progress Blood cultures in progress On broad-spectrum antibiotics Zosyn and vancomycin Early goal-directed therapy ongoing (12) Wound dehiscence, external operation: Code(s): T81.31XA - Disruption of external operation (surgical) wound, not elsewhere classified, initial encounter Status: Acute Assessment and Plan: Dehiscence of graft wound Local care Transfer Discharge Sum: Med Medications Active and Home Medications: Home Medications tamsulosin 0.4 mg capsule 0.4 mg PO DAILY #90 cap 08/25/20 [Rx Confirmed 01/08/21] blood-glucose meter,continuous #1 ea 12/08/20 [Rx Confirmed 01/08/21] blood-glucose sensor #9 ea 12/08/20 [Rx Confirmed
[2021-01-09 01:10] LABS: Reflex Lactic Acid Yes or No Add Lactic
[2021-01-09 01:11] LABS: Add Urine Microscopic? YES; Appearance Urine Cloudy (Clear); Bacteria Urine 4+ /hpf; Bilirubin Urine Negative (Negative); Blood Urine 2+ (Negative); Color Urine Red (Yellow); Glucose Urine UA 1+ mg/dL (Negative); Ketones Urine Negative (Negative); Leukocyte Esterase Ur Trace LEU/UL (Negative); Mucus Urine Rare /lpf; Nitrate Urine Negative (Negative); Protein Urine 2+ mg/dL (Negative); RBC Urine >75 /hpf (0-2); Specific Grav Ur 1.024 (1.001-1.035); Urobilinogen Urine Negative mg/dL (<2.0)
[2021-01-09 02:00] VITALS: PULSE 114
[2021-01-09 02:07] LABS: Lactic Acid 6.3 mmol/L (0.7-2.1)
--- NOTE | 2021-01-09 02:34 | PC.NURSE ---
Spoke to Evelyn to let her know of transfer to [place] for higher level of care.
== END 2021-01-09 02:38 | disposition short-term general hospital (02) ==
LOC: ANHED 13:17 → ANHIMU 22:18
PROVIDERS: Admitting Provider Internal Medicine; Emergency Provider Emergency Medicine; PCP Family Medicine; Visit Provider Internal Medicine
DX: I99.8 Other disorder of circulatory system (principal); R55 Syncope and collapse; A41.9 Sepsis, unspecified organism; T81.31XA Disruption of external operation (surgical) wound, not elsewhere classified, initial encounter; R06.02 Shortness of breath; D73.5 Infarction of spleen; E66.9 Obesity, unspecified; E11.65 Type 2 diabetes mellitus with hyperglycemia; E87.2 Acidosis; E78.5 Hyperlipidemia, unspecified; E11.22 Type 2 diabetes mellitus with diabetic chronic kidney disease; E11.42 Type 2 diabetes mellitus with diabetic polyneuropathy; G47.33 Obstructive sleep apnea (adult) (pediatric); I11.0 Hypertensive heart disease with heart failure; I50.9 Heart failure, unspecified; I25.10 Atherosclerotic heart disease of native coronary artery without angina pectoris; I95.9 Hypotension, unspecified; I13.0 Hypertensive heart and chronic kidney disease with heart failure and stage 1 through stage 4 chronic kidney disease, or unspecified chronic kidney disease; I25.2 Old myocardial infarction; N18.30 Chronic kidney disease, stage 3 unspecified; Z86.718 Personal history of other venous thrombosis and embolism; Z86.711 Personal history of pulmonary embolism; Z68.41 Body mass index [BMI] 40.0-44.9, adult; Z95.1 Presence of aortocoronary bypass graft; Z91.14 Patient's other noncompliance with medication regimen; Z79.4 Long term (current) use of insulin
CPT/HCPCS: 36415; 71046; 71275; 74177; 80048; 80076; 81001; 82948; 83605; 83690; 83880; 84484; 85025; 85610; 85730; 87040; 93005; 96361; 96365; 96366; 96375; 96376; 99285; A9270; G0378; J0131; J1644; J1815; J1940; J2270; J2405; J2543; J3370; J7030; J7050; Q9967

== ENCOUNTER 2021-05-11 11:58 | Outpatient (CLI) | payer MEDICARE, OTHER, SELFPAY ==
[2021-05-11 20:25] LABS: Hepatitis B Surface Antigen Negative (Negative)
[2021-05-11 20:31] LABS: HAV RESULT Negative (Negative); Hepatitis B Core IgM Result Negative (Negative)
[2021-05-11 20:43] LABS: Hepatitis C Virus Antibody Negative (Negative)
== END 2021-05-11 11:59 | disposition home or self-care (01) ==
PROVIDERS: PCP Family Medicine; Visit Provider Family Medicine
DX: I25.810 Atherosclerosis of coronary artery bypass graft(s) without angina pectoris (principal); I21.4 Non-ST elevation (NSTEMI) myocardial infarction; R10.9 Unspecified abdominal pain
CPT/HCPCS: 36415; 80074

== ENCOUNTER 2021-05-17 13:32 | Outpatient (CLI) | payer MEDICARE, OTHER, SELFPAY ==
--- NOTE | ~2021-05-17 | CT_ITS ---
EXAMINATION: CT diagnostic chest wo con EXAM DATE: 05/17/2021 14:09 INDICATION: R91.1 - Solitary pulmonary nodule TECHNIQUE: Spiral CT of the chest without contrast. Axial, coronal and sagittal images of the chest were reviewed. Coronal maximum intensity pixel images of chest reviewed. The dose-length product ( DLP) for this examination was 335.54 mGy-cm. The exposure was tailored according to patient size (au to mA exposure control), and iterative reconstruction (ASIR) was used as additional dose reduction te chnique. Comparison is made to prior examination from 01/08/2021. FINDINGS: Previously seen left lower lobe 1.8 cm nodule has essentially resolved. There is an adjace nt 1 cm left lower lobe calcified nodule, a granuloma. Several other subcentimeter granulomata which are also unchanged. Mild emphysema. There are no pleural or pericardial effusions. Tracheobronchia l tree is patent. There is no mediastinal, hilar or axillary lymphadenopathy. There is no pneumot horax. Heart normal in size. There are sternotomy wires, and cardiac/coronary surgical changes. C orrelate with prior history. Upper abdomen is unremarkable. There is moderate thoracic spondylosis without osteoblastic or osteolytic lesions identified. IMPRESSION: 1. Resolution of previously seen newly developed nodular opacity, probably was infectious in etiolog y. 2. Stable post infectious residua. 3. Mild emphysema. Reviewed, dictated and finalized at location A. WORKER IMPRESSION: 1. Resolution of previously seen newly developed nodular opacity, probably was infectious in etiology. 2. Stable post infectious residua. 3. Mild emphysema.
== END 2021-05-17 13:33 | disposition home or self-care (01) ==
PROVIDERS: PCP Family Medicine; Visit Provider Family Medicine
DX: R91.1 Solitary pulmonary nodule (principal); J43.9 Emphysema, unspecified
CPT/HCPCS: 71250

== ENCOUNTER 2021-05-24 13:29 | Outpatient (CLI) | payer MEDICARE, OTHER, SELFPAY ==
--- NOTE | 2021-05-24 13:41 | ECHO_ITS ---
Patient Info Name: Juan Bhatti Age: 65 years : 1955 Gender: Male Ht: 67 in Wt: 218 lbs BSA: 2.20 m2 HR: 73 bpm BP: 168 / 102 mmHg Technical Quality: Fair Exam Date: 05/24/2021 2:06 PM Exam Location: [facility] Patient Status: Outpatient Admit Date: 05/24/2021 Staff Ordering Physician: Sincere Hampton MD Wood Pattern Maker: Olinda Michelle RDCS Attending Provider: Sincere Hampton MD Referring Physician: Memo DOAN; Exam Type: CA echo doppler color flow Study Info Indications I21.4 - Non-ST elevation (NSTEMI) myocardial infarction I25.810 - ATHERSCLEROSIS OF CORONARY ARTERY BYPASS GRAFT Complete two-dimensional, color flow and Doppler transthoracic echocardiogram is performed. Summary 1. Complete two-dimensional, color flow and Doppler transthoracic echocardiogram is performed. 2. Left ventricular chamber dimension is normal. 3. Left ventricular systolic function is preserved, estimated at 50-55%. 4. The left ventricular diastolic function is grade I diastolic dysfunction. 5. Global longitudinal strain is abnormal at -11.5%. 6. There is mild aortic valve sclerosis. 7. No pulmonary hypertension, estimated pulmonary arterial systolic pressure is 15 mmHg. Left Ventricle Tissue doppler is not performed. Global longitudinal strain is abnormal at -11.5%. Left ventricular systolic function is preserved, estimated at 50-55%. Left ventricular chamber dimension is normal. The left ventricular diastolic function is grade I diastolic dysfunction. Right Ventricle Right ventricular chamber dimension is normal. Right ventricular systolic function is normal. Left Atria Left atrial chamber dimension is normal. Right Atria Right atrial chamber dimension is normal. Aortic Valve The aortic valve is not well visualized. Cannot determine number of aortic valve leaflets. There is mild aortic valve sclerosis. There is no aortic valve stenosis. There is no aortic valve regurgitation. Pulmonic Valve There is no pulmonic regurgitation. Mitral Valve There is no mitral valve stenosis. There is no mitral valve regurgitation. Tricuspid Valve There is no tricuspid valve regurgitation. No pulmonary hypertension, estimated pulmonary arterial systolic pressure is 15 mmHg. Pericardium/Pleural There is no pericardial effusion. Inferior Vena Cava Normal inferior vena cava with >50% collapse upon inspiration consistent with normal right atrial pressure, 5 mmHg. Aorta The aortic root size at the sinus of Valsalva is normal. Left Ventricular Outflow Tract Name Value Normal LVOT 2D LVOT Diameter 2.0 cm LVOT Doppler LVOT Peak Gradient 4 mmHg LVOT Mean Gradient 2 mmHg LVOT VTI 18 cm LVOT VTI/AV VTI Ratio 1.0 LVOT Stroke Volume 57 ml LVOT CO 4.2 l/min LVOT CI 1.9 l/min/m2 Pulmonic Valve Name
== END 2021-05-24 13:30 | disposition home or self-care (01) ==
LOC: ANHCARD 13:31
PROVIDERS: PCP Family Medicine; Visit Provider Family Medicine
DX: I25.810 Atherosclerosis of coronary artery bypass graft(s) without angina pectoris (principal); I21.4 Non-ST elevation (NSTEMI) myocardial infarction
CPT/HCPCS: 93306

== ENCOUNTER 2021-06-02 12:00 | Outpatient (CLI) | payer MEDICARE, OTHER, SELFPAY ==
[2021-06-02 16:45] LABS: Alanine Aminotransferase 25 U/L (4-50); Albumin Level 4.5 g/dL (3.5-5.1); Alkaline Phosphatase 67 U/L (38-126); Anion Gap 8 mmol/L (8-16); Aspartate Amino Transferase 32 U/L (17-59); Bilirubin,Total 0.4 mg/dL (0.2-1.3); Blood Urea Nitrogen 20 mg/dL (9-20); Calcium 9.9 mg/dL (8.4-10.2); Carbon Dioxide 28 mmol/L (22-30); Chloride 103 mmol/L (98-107); Cholesterol 229 mg/dL (0-200); Estimated Glomerular Filt Rate > 60; Glucose 113 mg/dL (65-110); HDL Direct 51 mg/dL; Potassium 4.3 mmol/L (3.4-5.0); Sodium 139 mmol/L (137-145); Triglycerides 190 mg/dL (<150)
[2021-06-02 16:57] LABS: LDL Cholesterol Direct 111 mg/dL
[2021-06-02 16:59] LABS: Free T4 Free Thyroxine 1.25 ng/mL (0.78-2.19)
[2021-06-02 17:23] LABS: Creatinine Urine 139.3 mg/dL
[2021-06-02 17:35] LABS: MALB Creatinine Ratio 300.3 mg/g (0-30); Microalbumin Urine Random 418.3 mg/L (0-16.7)
== END 2021-06-02 12:01 | disposition home or self-care (01) ==
LOC: ANHWCLAB 12:04
PROVIDERS: PCP Family Medicine; Visit Provider Nurse Practitioner Family
DX: E11.9 Type 2 diabetes mellitus without complications (principal); E78.00 Pure hypercholesterolemia, unspecified; I10 Essential (primary) hypertension; G62.9 Polyneuropathy, unspecified
CPT/HCPCS: 36415; 80053; 80061; 82043; 82607; 84439; 84443

== ENCOUNTER 2021-11-20 01:01 | Emergency (ER) | payer MEDICARE, OTHER, SELFPAY ==
[2021-11-20] VITALS (24 sets, daily range): BP systolic 124–143; BP diastolic 80–90; PULSE 91–113; RESP 16–28; TEMP 37.6; O2SAT 91–97
--- NOTE | ~2021-11-20 | CT_ITS ---
EXAMINATION: CTA chest PE abdomen pel DATE: 11/20/2021 02:59 INDICATION: Shortness of breath. Confusion. TECHNIQUE: Computed tomography angiography (CTA) of the chest, abdomen and pelvis was performed with 100 mL Omnipaque-350 intravenous contrast timed to evaluate the pulmonary arteries. Coronal maximum i ntensity projection 3D-reconstructions were created by the technologist. Automated exposure control a nd iterative reconstruction technique were employed. Exam dose: 2257.93 mGy-cm total exam DLP. COMPARISON: 11/20/2021 portable AP chest 05/17/2021 CT chest 01/08/2021 CT abdomen pelvis FINDINGS: There is diagnostic contrast enhancement of the pulmonary arteries and no evidence of pulmo nary embolism. No thoracic aortic aneurysm or dissection. Normal heart size. No pericardial or pleura l effusion. Calcified left lower lobe pulmonary granulomas and calcified left hilar nodes, consistent with old pu lmonary granulomatous disease. Calcified splenic granulomas are noted as well. No hilar or mediastinal mass lesion or lymphadenopathy. Mild atelectasis primarily in the lower lobes. No pulmonary consolidation or suspicious pulmonary mas s lesion is evident. Status post sternotomy. The gallbladder is distended. No gallbladder wall thickening or pericholecystic fluid or fat strandin g is noted. The gallbladder is present. No gallbladder wall thickening or pericholecystic fluid or fat stranding. No bile duct dilatation. No hepatic, splenic, pancreatic, and adrenal or renal space-occupying mass lesion is evident, other t wu at least one small cyst of each kidney urinary tract calculus or hydroureteronephrosis. The urina ry bladder and prostate gland are unremarkable. Small fat-containing left inguinal hernia. Normal appendix. No bowel obstruction or intraperitoneal free air. Inferior vena cava filter. Normal caliber of the abdominal aorta. No intraperitoneal or retroperitone al or pelvic mass lesion or adenopathy or ascites. Diffuse idiopathic skeletal hyperostosis of the thoracic spine. Severe degenerative disc disease and mild retrolisthesis at L5-S1. Bilateral hip osteoarthritis. IMPRESSION: No evidence of pulmonary embolism Normal appendix IVC filter Reviewed, dictated and finalized at [facility]. Reviewed, dictated and finalized at location A.
--- NOTE | ~2021-11-20 | CT_ITS ---
EXAMINATION: CT brain wo con DATE: 11/20/2021 02:59 INDICATION: Confusion TECHNIQUE: Computed tomography (CT) of the head was performed without intravenous contrast. The mA wa s adjusted according to patient size. Iterative reconstruction technique was employed. Exam dose: 68 1.00 mGy-cm total exam DLP. COMPARISON: None FINDINGS: Bilateral carotid siphon and prominent right supraclinoid internal carotid artery calcifica tions. Bilateral vertebral artery calcifications. Nonspecific diminished attenuation of the cerebral white matter, likely due to chronic small vessel ischemic changes. Prominent chronic left basal ganglia lacunar infarct Chronic high posterior parietal chronic infarct on the left. Small chronic infarct of the posterior m edial right parietal lobe. Small old infarcts of the cerebellar hemispheres. No intracranial mass lesion or hemorrhage, midline shift or mass effect effect or subdural or epidura l hematoma, is tach.. The paranasal sinuses and mastoid air cells are normally developed and aerated. No fracture or bone destruction of the cranial vault. IMPRESSION: Cerebral atherosclerosis and chronic small vessel ischemic changes of cerebral white mat ter Small bilateral cerebellar infarcts, chronic small old right posterior medial parietal and larger pos terior high left parietal and left basal ganglia infarcts No acute intracranial finding Reviewed, dictated and finalized at [facility]. Reviewed, dictated and finalized at location A. IMPRESSION: Cerebral atherosclerosis and chronic small vessel ischemic changes of cerebral white matter Small bilateral cerebellar infarcts, chronic small old right posterior medial p arietal and larger posterior high left parietal and left basal ganglia infarcts No acute intracranial finding
--- NOTE | ~2021-11-20 | XR_ITS ---
XR chest 1V portable DATE: 11/20/2021 02:28 INDICATION: Shortness of breath. History of pulmonary embolus. TECHNIQUE: Portable upright AP chest on 11/20/2021 COMPARISON: 01/08/2021 2 view chest 05/17/2021 CT chest FINDINGS: Status post sternotomy. Heart size appears normal. There is aortic unfolding. There is minimal infiltrate or atelectasis in the lower lung zones; there is suboptimal expansion of the lungs, with relatively high diaphragm position. No pleural effusion or pulmonary vascular congest ion or pneumothorax is evident. IMPRESSION: Limited portable single AP view with relatively high diaphragm, suboptimal lung expansion Reviewed, dictated and finalized at location A. IMPRESSION: Limited portable single AP view with relatively high diaphragm, sub optimal lung expansion
--- NOTE | 2021-11-20 01:11 | ECG_ITS ---
Measurements Intervals [place] Rate: 112 P: 48 MA: 219 QRS: -68 QRSD: 102 T: 48 QT: 316 QTc: 432 Interpretive Statements SINUS TACHYCARDIA WITH FIRST DEGREE AV BLOCK POOR R WAVE PROGRESSION, ANTERIOR LEADS INFERIOR INFARCT, AGE INDETERMINATE ABNORMAL ECG Electronically Signed On 11-20-2021 9:57:47 CDT by Toim Holland D.O.
[2021-11-20 01:50] LABS: Basophils Percent Auto 0.3 % (0.2-1.2); Eosinophils Absolute Auto 0.1 K/mm3 (0-0.3); Eosinophils Percent Auto 0.7 % (0-4.4); Hematocrit 48.1 % (42.0-52.0); Hemoglobin 16.1 g/dL (14.0-18.0); Immature Granulocyte Absolute 0.05 K/mm3 (0.00-0.031); Immature Granulocyte Percent A 0.4 % (0-0.5); Immature Platelet Fraction Pct 5.1 % (0.9-11.2); Lymphocytes Absolute Auto 1.16 K/mm3 (0.9-3.2); Lymphocytes Percent Auto 9.3 % (18.3-44.2); Mean Corpuscular HGB Conc 33.5 g/dl (32-36); Mean Corpuscular Hemoglobin 28.6 pg (26-34); Mean Corpuscular Volume 85.6 fl (80-100); Mean Platelet Volume 10.6 fl (7.4-10.4); Monocytes Absolute Auto 1.2 K/mm3 (0.1-0.6); Monocytes Percent Auto 9.3 % (2.6-8.5); Platelet Count Result 132 k/mm3 (150-375); Red Blood Count 5.62 M/mm3 (4.6-6.20); White Blood Count 12.5 K/mm3 (4.5-10.0)
--- NOTE | 2021-11-20 01:53 | ED.GENADULT ---
HPI - General Adult General Chief complaint: Weakness Stated complaint: WEAKNESS Time Seen by Provider: 11/20/21 01:11 History of Present Illness HPI narrative: Patient is a 66-year-old gentleman who presents the emergency department with chief complaint of generalized weakness and confusion. Patient has prior history of strokes also history of DVTs and clots the patient had previously been in hospice and [facility] but was able to be removed from hospice and has been at home under the care of his family. Patient since around 7 PM was more confused and was having difficulty getting up and moving around. They report no cough no shortness of breath no abdominal pain the family denies fever or flulike symptoms. Related Data Home Medications Medication Instructions Recorded Confirmed aspirin 325 mg tablet 325 mg PO DAILY 05/11/21 11/16/21 Allergies Allergy/AdvReac Type Severity Reaction Status Date / Time celecoxib Allergy Unknown Rash Verified 11/16/21 09:55 dapagliflozin Allergy Unknown Unknown Verified 11/16/21 09:55 fenofibrate Allergy Unknown Joint Pain Verified 11/16/21 09:55 Qexpzfj-PVA-ZxH Reductase Allergy Unknown Joint Pain Verified 11/16/21 09:55 Inhibitor [Ijvliaa-Glc-Iep Reductase Inhibitor] tapentadol [From Nucynta] AdvReac Intermediate rash Verified 11/16/21 09:55 codeine AdvReac Confusion Verified 11/16/21 09:55 lidocaine AdvReac Hives Verified 11/16/21 09:55 Review of Systems Review of Systems: A 10 system review of systems was completed on the patient and is negative except for what is stated in the HPI. Nursing and ancillary documentation was reviewed. 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 DVT (deep venous thrombosis) Julian filter in place Hemoptysis History of deep venous thrombosis or pulmonary embolus Hypercholesterolemia Hypertension Ischemic leg Liver cirrhosis Lung nodule < 6cm on CT Neuropathy NSTEMI (non-ST elevated myocardial infarction) Orthostatic hypotension CARY (obstructive sleep apnea) Pneumonia Pulmonary embolism Ruptured intervertebral disc Seasonal allergies Splenic infarct Statin intolerance Type 2 diabetes mellitus with stage 3 chronic kidney disease Ulcer Umbilical hernia Uncontrolled type 2 diabetes mellitus with hyperglycemia Surgical History Surgical History H/O Spinal surgery History of inguinal hernia repair History of knee surgery Left History of thumb surgery Left Family History Family History Father Hypertension Family history of elevated blood lipids Mother Hypertension Family history of elevated blood lipids Family history of diabetes mellitus in first degree relative Other Cancer Diabetes mellitus Thyroid disease Social History Social History Smoking status: Never smoker Tobacco type: cigarettes Second hand tobacco smoke exposure: No Alcohol intake: never Substance use: never Gender identity (if verbalized by the patient): Male Spiritual care concerns: No Exam Narrative: GENERAL: Well-appearing, well-nourished, and in no acute distress. HEAD: Normocephalic, atraumatic. EYES: PERRLA and EOMI. ENT: Na
[2021-11-20 01:59] LABS: INR 1.2; Prothrombin Time 14.4 Seconds (11.1-14.7)
[2021-11-20 02:00] LABS: Partial Thromboplastin Time 34.7 SECONDS (22.3-36.8)
[2021-11-20 02:04] LABS: Alanine Aminotransferase 51 U/L (6-50); Albumin Level 4.1 g/dL (3.5-5.1); Alkaline Phosphatase 62 U/L (38-126); Anion Gap 7 mmol/L (8-16); Aspartate Amino Transferase 53 U/L (17-59); Bilirubin,Total 0.8 mg/dL (0.2-1.3); Blood Urea Nitrogen 21 mg/dL (9-20); Carbon Dioxide 24 mmol/L (22-30); Chloride 105 mmol/L (98-107); Estimated CRCL calculation 71 ml/min; Estimated Glomerular Filt Rate > 60; Glucose 146 mg/dL (65-110); Lactic Acid Reflex 1.3 mmol/L (0.7-2.0); Lipase 641 U/L (23-300); Magnesium 1.6 mg/dL (1.6-2.3); Potassium 3.9 mmol/L (3.4-5.0); Sodium 136 mmol/L (137-145)
[2021-11-20 02:15] LABS: NT Pro B Type Natriuretic Pept 138 pg/mL (5-100); Troponin I < 0.012 ng/mL (0.000-0.034)
[2021-11-20 02:36] LABS: Influenza A QL RT-PCR Negative (Negative); Influenza B QL RT-PCR Negative (Negative); SARS-CoV-2 RNA PCR Negative
[2021-11-20 04:46] LABS: Appearance Urine Clear (Clear); Bilirubin Urine Negative (Negative); Blood Urine Negative (Negative); Color Urine Yellow (Yellow); Glucose Urine UA Negative (Negative); Ketones Urine Negative (Negative); Leukocyte Esterase Ur Trace LEU/UL (Negative); Nitrate Urine Negative (Negative); Protein Urine Trace mg/dL (Negative); Specific Grav Ur <= 1.005 (1.001-1.035)
[2021-11-20 04:51] LABS: Bacteria Urine Trace /hpf; Mucus Urine Rare /lpf; WBC Urine 16-20 /hpf
[2021-11-20 04:57] LABS: Troponin I < 0.012 ng/mL (0.000-0.034)
[2021-11-20 05:05] LABS: Add Urine Microscopic? YES
== END 2021-11-20 06:30 | disposition home or self-care (01) ==
PROVIDERS: Emergency Provider Emergency Medicine; PCP Family Medicine
DX: R53.1 Weakness (principal); Z20.822 Contact with and (suspected) exposure to COVID-19; I25.810 Atherosclerosis of coronary artery bypass graft(s) without angina pectoris; E11.22 Type 2 diabetes mellitus with diabetic chronic kidney disease; I13.0 Hypertensive heart and chronic kidney disease with heart failure and stage 1 through stage 4 chronic kidney disease, or unspecified chronic kidney disease; E11.40 Type 2 diabetes mellitus with diabetic neuropathy, unspecified; N18.30 Chronic kidney disease, stage 3 unspecified; I50.32 Chronic diastolic (congestive) heart failure; E78.00 Pure hypercholesterolemia, unspecified; I11.0 Hypertensive heart disease with heart failure; I25.2 Old myocardial infarction; G47.33 Obstructive sleep apnea (adult) (pediatric); H26.9 Unspecified cataract; Z86.73 Personal history of transient ischemic attack (TIA), and cerebral infarction without residual deficits; Z86.711 Personal history of pulmonary embolism; Z86.718 Personal history of other venous thrombosis and embolism; Z87.01 Personal history of pneumonia (recurrent); Z79.82 Long term (current) use of aspirin; Z79.899 Other long term (current) drug therapy; Z79.4 Long term (current) use of insulin; Z79.01 Long term (current) use of anticoagulants; R00.0 Tachycardia, unspecified; I44.0 Atrioventricular block, first degree; R94.31 Abnormal electrocardiogram [ECG] [EKG]
CPT/HCPCS: 36415; 70450; 71045; 71275; 74177; 80053; 81001; 83605; 83690; 83735; 83880; 84484; 85025; 85055; 85610; 85730; 87040; 87077; 87086; 87186; 87502; 93005; 99284; C9803; Q9967; U0003; U0005

== ENCOUNTER 2022-03-08 11:58 | Outpatient (CLI) | payer MEDICARE, OTHER, SELFPAY ==
[2022-03-08 19:29] LABS: Basophils Percent Auto 0.4 % (0.2-1.2); Eosinophils Absolute Auto 0.1 K/mm3 (0-0.3); Eosinophils Percent Auto 1.6 % (0-4.4); Hematocrit 50.4 % (42.0-52.0); Hemoglobin 16.6 g/dL (14.0-18.0); Immature Granulocyte Absolute 0.02 K/mm3 (0.00-0.031); Immature Granulocyte Percent A 0.3 % (0-0.5); Lymphocytes Absolute Auto 1.39 K/mm3 (0.9-3.2); Lymphocytes Percent Auto 20.8 % (18.3-44.2); Mean Corpuscular HGB Conc 32.9 g/dl (32-36); Mean Platelet Volume 11.8 fl (7.4-10.4); Monocytes Absolute Auto 0.7 K/mm3 (0.1-0.6); Neutrophils Absolute Auto 4.5 K/mm3 (1.3-6.7); Neutrophils Percent Auto 66.9 % (45.5-73.1); Platelet Count Result 160 k/mm3 (150-375); Red Blood Count 5.73 M/mm3 (4.6-6.20); Red Cell Distribution Width 14.1 % (11.5-14.5); White Blood Count 6.7 K/mm3 (4.5-10.0)
[2022-03-08 19:44] LABS: Alanine Aminotransferase 30 U/L (6-50); Albumin Level 4.6 g/dL (3.5-5.1); Alkaline Phosphatase 67 U/L (38-126); Anion Gap 15 mmol/L (8-16); Aspartate Amino Transferase 41 U/L (17-59); Bilirubin,Total 0.8 mg/dL (0.2-1.3); Blood Urea Nitrogen 22 mg/dL (9-20); Calcium 9.4 mg/dL (8.4-10.2); Carbon Dioxide 30 mmol/L (22-30); Chloride 95 mmol/L (98-107); Estimated Glomerular Filt Rate 60; Glucose 143 mg/dL (65-110); Sodium 140 mmol/L (137-145)
[2022-03-08 19:49] LABS: Hemoglobin A1C 6.8 % (<5.7)
[2022-03-08 21:35] LABS: MALB Creatinine Ratio 118.8 mg/g (0-30)
== END 2022-03-08 11:59 | disposition home or self-care (01) ==
PROVIDERS: Internal Medicine Endocrinology, Diabetes & Metabolism; PCP Family Medicine; Visit Provider Family Medicine
DX: G47.33 Obstructive sleep apnea (adult) (pediatric) (principal); E11.65 Type 2 diabetes mellitus with hyperglycemia; Z79.4 Long term (current) use of insulin; I95.1 Orthostatic hypotension; E11.22 Type 2 diabetes mellitus with diabetic chronic kidney disease; N18.30 Chronic kidney disease, stage 3 unspecified
CPT/HCPCS: 36415; 80053; 82043; 83036; 85025

== ENCOUNTER → 2022-04-19 11:47 | Outpatient (CLI) | payer MEDICARE, OTHER, SELFPAY ==
--- NOTE | ~2022-04-19 | XR_ITS ---
EXAM: XR knee RT 2V, XR knee LT 2V DATE: 04/19/2022 12:06 HISTORY: BILAT KNEE PAIN CHRONIC NO INJURY . COMPARISON: Right knee 07/03/2018. FINDINGS: Decreased mineralization. No fracture or dislocation. No lytic or blastic lesion. Severe b ilateral medial joint space narrowing, worse on the left. Tricompartmental osteophytosis, moderate in the left knee and mild to moderate in the right knee. Chondrocalcinosis. No erosion or periosteal ch fabiano. Vascular clips in the medial right leg soft tissues. Phleboliths. Arterial calcification. IMPRESSION: Tricompartmental bilateral knee arthritis, worse in the left knee. Reviewed, dictated and finalized at location K. 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
== END ==
PROVIDERS: PCP Family Medicine; Visit Provider Nurse Practitioner Family
DX: M17.0 Bilateral primary osteoarthritis of knee (principal)
CPT/HCPCS: 73560

== ENCOUNTER 2022-07-27 14:00 | Outpatient (CLI) | payer MEDICARE, OTHER, SELFPAY ==
--- NOTE | ~2022-07-27 | US_ITS ---
EXAMINATION: US art doppler elvira ANN DATE: 07/27/2022 15:21 INDICATION: Peripheral vascular disease TECHNIQUE: Segmental pressures and plethysmographic and Doppler waveforms of the brachial and lower e xtremity arteries were obtained. COMPARISON: None. FINDINGS: Right and left brachial artery pressures of 125 mm Hg and 127 mm Hg, respectively, are concordant (no rmal difference <= 30 mmHg). The right and left high-thigh pressure indices are 1.33 and 1.39, respec tively (normal > 1.2). The right ankle-brachial index (CHRISTINA) is unable to be obtained due to inability to occlude the vessels below the right knee (normal >= 0.9-1). The right great toe-brachial index (TBI) is 0.69 (normal >= 0.6-0.8). The right lower extremity segmental pressure gradients are normal at the right thigh (michelle l gradients <= 20-30 mmHg between adjacent levels on the same leg or the same levels on the two legs) . Arterial waveforms are triphasic with brisk systolic upstrokes throughout the arteries of the right lower limb. The left CHRISTINA is unable to be obtained also due to inability to occlude the vessels below the left kne e. The left TBI is 0.76. The left lower extremity segmental pressure gradients are increased between the left high and low thigh. Arterial waveforms are triphasic with brisk systolic upstrokes throughou t the arteries of the left lower limb. IMPRESSION: 1. Normal TBIs bilaterally. No significant occlusive disease. Reviewed, dictated and finalized at location A.
== END 2022-07-27 14:01 | disposition home or self-care (01) ==
LOC: ANHIMG 14:09
PROVIDERS: PCP Family Medicine; Visit Provider Nurse Practitioner Family
DX: I73.9 Peripheral vascular disease, unspecified (principal); E11.65 Type 2 diabetes mellitus with hyperglycemia; Z78.9 Other specified health status
CPT/HCPCS: 93923

== ENCOUNTER 2022-08-24 13:47 | Outpatient (CLI) | payer MEDICARE, OTHER, SELFPAY ==
[2022-08-24 20:38] LABS: Appearance Urine Cloudy (Clear); Bacteria Urine 4+ /hpf; Bilirubin Urine Negative (Negative); Blood Urine 3+ (Negative); Color Urine Yellow (Yellow); Glucose Urine UA Negative (Negative); Ketones Urine Negative (Negative); Leukocyte Esterase Ur 3+ LEU/UL (NEGATIVE); Need Manual Microscopic Reviewed; Nitrate Urine Negative (Negative); Non Pathogenic Casts 0-2; Protein Urine 1+ mg/dL (Negative); RBC Urine 51-100 /hpf (0-2); Specific Grav Ur 1.017 (1.001-1.035); Squamous Epithelial Cell Urine None seen /hpf (Few); WBC Urine >100 /hpf (0-3)
[2022-08-24 20:39] LABS: Add Urine Microscopic? YES
== END 2022-08-24 13:48 | disposition home or self-care (01) ==
PROVIDERS: PCP Family Medicine; Visit Provider Nurse Practitioner Family
DX: R31.9 Hematuria, unspecified (principal)
CPT/HCPCS: 81001

== ENCOUNTER 2022-11-22 07:00 | Outpatient (CLI) | payer MEDICARE, OTHER, SELFPAY ==
[2022-11-22 20:01] LABS: Basophils Absolute Auto 0.1 K/mm3 (0.0-0.1); Eosinophils Absolute Auto 0.2 K/mm3 (0-0.3); Eosinophils Percent Auto 2.6 % (0-4.4); Hematocrit 55.8 % (42.0-52.0); Hemoglobin 17.7 g/dL (14.0-18.0); Immature Granulocyte Absolute 0.02 K/mm3 (0.00-0.031); Immature Granulocyte Percent A 0.3 % (0-0.5); Lymphocytes Absolute Auto 1.75 K/mm3 (0.9-3.2); Lymphocytes Percent Auto 28.2 % (18.3-44.2); Mean Corpuscular HGB Conc 31.7 g/dl (32-36); Mean Corpuscular Hemoglobin 29.7 pg (26-34); Mean Corpuscular Volume 93.6 fl (80-100); Mean Platelet Volume 11.1 fl (7.4-10.4); Monocytes Absolute Auto 0.5 K/mm3 (0.1-0.6); Monocytes Percent Auto 8.7 % (2.6-8.5); Neutrophils Absolute Auto 3.7 K/mm3 (1.3-6.7); Neutrophils Percent Auto 59.2 % (45.5-73.1); Platelet Count Result 169 k/mm3 (150-375); Red Blood Count 5.96 M/mm3 (4.6-6.20); Red Cell Distribution Width 14.2 % (11.5-14.5); White Blood Count 6.2 K/mm3 (4.5-10.0)
[2022-11-22 21:27] LABS: Alanine Aminotransferase 24 U/L (6-50); Albumin Level 4.5 g/dL (3.5-5.1); Alkaline Phosphatase 55 U/L (38-126); Anion Gap 5 mmol/L (8-16); Aspartate Amino Transferase 47 U/L (17-59); Bilirubin,Total 0.7 mg/dL (0.2-1.3); Blood Urea Nitrogen 23 mg/dL (9-20); Calcium 9.7 mg/dL (8.4-10.2); Carbon Dioxide 34 mmol/L (22-30); Chloride 101 mmol/L (98-107); Cholesterol 157 mg/dL (0-200); Estimated Glomerular Filt Rate > 60; Glucose 155 mg/dL (65-110); HDL Direct 41 mg/dL; Potassium 4.1 mmol/L (3.4-5.0); Sodium 140 mmol/L (137-145); Triglycerides 141 mg/dL (<150)
[2022-11-22 21:39] LABS: LDL Cholesterol Direct 69 mg/dL
[2022-11-22 21:59] LABS: Prostate Specific Antigen 5.9 ng/mL (< OR = 4.0); Thyroid Stimulating Hormone 0.963 uIU/mL (0.465-4.680)
== END 2022-11-22 07:01 | disposition home or self-care (01) ==
PROVIDERS: PCP Family Medicine; Visit Provider Nurse Practitioner
DX: G47.33 Obstructive sleep apnea (adult) (pediatric) (principal); I73.9 Peripheral vascular disease, unspecified; E11.65 Type 2 diabetes mellitus with hyperglycemia; Z79.4 Long term (current) use of insulin; E78.00 Pure hypercholesterolemia, unspecified; Z12.5 Encounter for screening for malignant neoplasm of prostate
CPT/HCPCS: 36415; 80053; 80061; 84153; 84443; 85025; G0103

== ENCOUNTER 2022-12-03 10:52 | Emergency (ER) | payer MEDICARE, OTHER, SELFPAY ==
[2022-12-03] VITALS (43 sets, daily range): BP systolic 46–190; BP diastolic 17–124; PULSE 0–104; RESP 0–23; TEMP 36.8; O2SAT 0–100
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
[2022-12-03] MEDS: ONDANSETRON INJ 4 MG/2 ML VIAL IV PUSH (11:28)
--- NOTE | 2022-12-03 16:58 | PC.NURSE ---
Pt at 1634, EDP at bedside, family at bedside too.
--- NOTE | 2022-12-03 18:24 | PC.NURSE ---
Wedding ring and neckless sent with the .
== END 2022-12-03 18:21 | disposition expired ==
PROVIDERS: Emergency Provider Emergency Medicine; PCP Family Medicine
DX: S01.83XA Puncture wound without foreign body of other part of head, initial encounter (principal); I25.10 Atherosclerotic heart disease of native coronary artery without angina pectoris; I13.0 Hypertensive heart and chronic kidney disease with heart failure and stage 1 through stage 4 chronic kidney disease, or unspecified chronic kidney disease; I50.32 Chronic diastolic (congestive) heart failure; N18.30 Chronic kidney disease, stage 3 unspecified; E11.22 Type 2 diabetes mellitus with diabetic chronic kidney disease; E11.40 Type 2 diabetes mellitus with diabetic neuropathy, unspecified; E78.00 Pure hypercholesterolemia, unspecified; K74.60 Unspecified cirrhosis of liver; I25.2 Old myocardial infarction; G47.33 Obstructive sleep apnea (adult) (pediatric); G89.29 Other chronic pain; M19.90 Unspecified osteoarthritis, unspecified site; F32.A Depression, unspecified; Z86.718 Personal history of other venous thrombosis and embolism; Z86.711 Personal history of pulmonary embolism; Z79.85 Long-term (current) use of injectable non-insulin antidiabetic drugs; Z79.82 Long term (current) use of aspirin; Z79.01 Long term (current) use of anticoagulants
CPT/HCPCS: 96374; 99284; J2405